=== PATIENT | female | born 1990 ===

== ENCOUNTER 2023-05-04 04:58 | Emergency (ER) | payer OTHER, SELFPAY ==
[2023-05-04 05:05] VITALS: BP 126/83; PULSE 81; RESP 16; TEMP 36.3; O2SAT 100
--- NOTE | 2023-05-04 05:10 | ED.GENADULT ---
HPI - General Adult General Chief complaint: Headache/Migraine Stated complaint: headache above left ear Time Seen by Provider: 05/04/23 05:10 History of Present Illness HPI narrative: pt reports pain, head to left ear. Started Friday morning, off and on since then. Pt has been alternating between Tylenol and Ibuprofen. Last dose at 4am. feels like someone is stabbing in her head. 32-year-old woman presenting to the emergency department with complaint of left ear, head pain. Shane and sharp pain over the last 24 hours beginning when she woke up with a headache. She thought initially maybe was a tooth problem she does not think that is it. Acknowledging her underbite and crooked teeth she says. Definitely hurts to lay more in her left side of her head. Spasms of pain will occur every minute or to. She is in tears telling me about this. Has been no fever. No cough or cold symptoms. She is not congested really. No actual ear pain. Has tried acetaminophen and ibuprofen without relief. No rashes noted. Gestures to area of pain just behind and surrounding her left rastafarian. Related Data Previous Rx's Medication Instructions Recorded carbamazepine 200 mg tablet 200 mg PO BID Trigeminal neuralgia 05/04/23 #60 tabs Allergies Allergy/AdvReac Type Severity Reaction Status Date / Time No Known Drug Allergies Allergy Verified 05/04/23 05:08 Review of Systems Status of ROS: Reports: 6 or more systems reviewed and unremarkable except as noted in History and below [facility] Social History Non-prescribed substance use: denies use Exam Narrative: Exam Narrative: Pleasant. Clearly distressed. Begins to cry as she is talking about this. Pauses and winces in apparent pain. Breathing easily. Heart regular rate and rhythm. No sensory deficits moving all extremities without difficulty she is well-perfused. Neck is supple without lymphadenopathy. TMs are clear. Dentition is in good repair. No oropharyngeal lesions. No swelling over the rastafarian, no pulsatile mass appreciated. She is not sore to occipital percussion. No rashes. Const: Vital Signs, click to edit/add: Vital Signs - 24 hr 05/04/23 05:05 05/04/23 06:36 Temperature 97.3 F L Pulse Rate [Left P ulse Oximeter] 81 78 Respiratory Rate 16 18 Blood Pressure [Ri ght Upper Arm] 126/83 128/64 Pulse Oximetry 100 99 Oxygen Delivery Me thod Room Air Room Air Documenting provider has reviewed patient's vital signs: yes Course Vital Signs Vital signs: Initial Vital Signs Temperature 97.3 F L 05/04/23 05:05 Temperature Source Temporal Artery Scan 05/04/23 05:05 Pulse Rate 81 05/04/23 05:05 Pulse Rhythm Regular 05/04/23 05:05 Respiratory Rate 16 05/04/23 05:05 Blood Pressure 126/83 05/04/23 05:05 Blood Pressure Mean 97 05/04/23 05:05 Blood Pressure Position Sitting 05/04/23 05:05 Pulse Oximetry 100 05/04/23 05:05 Oxygen Delivery Method Room Air 05/04/23 05:05 Vital Signs Temperature 97.3 F L 05/04/23 05:05 Pulse Rate 81 05/04/23 05:05 Respiratory Rate 16 05/04/23 05:05 Blood Pressure 126/83 05/04/23 05:05 Pulse Oximetry 100 05/04/23 05:05 Oxygen Delivery Method Room Air 05/04/23 05:05 Temperature 97.3 F L 05/04/23 05:05 Pulse Rate 78 05/04/23 06:36 Respiratory Rate 18 05/04/23 06:36 Blood Pressure 128/64 05/04/23 06:36 Pulse Oximetry 99 05/04/23 06:36 Oxygen Delivery Method Room Air 05/04/23 06:36 Medical Decision Making MDM Narrative Medical decision making narrative: I would suspect tic douloureux/trigeminal neuralgia. Temporal arteritis possibility as well though recurrent pulse of pain I think are more consistent with the former. Offered a trial of intranasal lidocaine mist. This seemed to pauses possibly a cycle or 2 of the pulsatile pain, but did return. Carbamazepine 200 mg Prior to departure began to have what appeared to be a panic attack. Generally trembly. Reported initially some dizziness and tingling in both hands. Worked together to relax. See patient discharge Discharge Plan Discharge Clinical Impression: Left-sided trigeminal neuralgia Patient Disposition: Home, Self-Care Condition: Stable Additional Instructions: I suspect unfortunately you have trigeminal neuralgia also known as tic douloureux. The Percocet from [facility] might take a little bit of the edge off. The treatment though to start with will be carbamazepine also known as Tegretol. Begin at 200 mg 2 times daily and in 3-4 days can increase to 400 mg 2 times daily if needed. In another 3 or 4 days can increase to 600 mg 2 times daily. A main side effect of Tegretol can be sedation. You may need to be on this medication for many weeks. You do not need to increase the dosing if it seems to be working. Please call on Friday morning to schedule a visit with your primary care provider to arrange next steps in treatment or evaluation. Sometimes injections to block nerves can be helpful. Stay well-hydrated. Do your best to get good sleep. Prescriptions: New carbamazepine 200 mg tablet 200 mg PO BID Qty: 60 0RF Follow Up/Referrals: Marya Scott MD [Primary Care Provider] - Stand Alone Forms: [employer] Info Instructions
[2023-05-04 06:36] VITALS: BP 128/64; PULSE 78; RESP 18; O2SAT 99
== END 2023-05-04 07:19 | disposition home or self-care (01) ==
PROVIDERS: Emergency Provider Family Medicine; PCP Family Medicine
DX: G50.0 Trigeminal neuralgia (principal)
CPT/HCPCS: 99283; 99284

== ENCOUNTER 2024-03-01 18:26 | Emergency (ER) | payer OTHER, SELFPAY ==
[2024-03-01 18:31] VITALS: BP 132/91; PULSE 81; RESP 16; TEMP 37; O2SAT 97; BMI 40.2
[2024-03-01 19:13] LABS: Appearance Urine Cloudy (Clear); Bilirubin Urine Negative (Negative); Blood Urine 3+ (Negative); Color Urine Red (Yellow); Glucose Urine Negative (Negative); Ketones Urine Negative (Negative); Leukocyte Esterase Urine Negative (Negative); Nitrite Urine Negative (Negative); Protein Urine Trace (Negative); Specific Gravity Urine 1.015 (1.000-1.030); Urobilinogen Urine 0.2 (0.2-1.0)
[2024-03-01 19:27] LABS: Bacteria Urine Few; RBC Urine 25-50 (0-2); Squamous Epithelial Cell Urine Few (None-Few)
--- NOTE | 2024-03-01 19:31 | ED_ITS ---
HPI - Female Genitourinary General Time Seen by Provider: 19:31 Date Seen: 03/01/24 Chief complaint: Urogenital Problems, Female Stated complaint: UTI upper back pain Time Seen by Provider: 03/01/24 19:31 Source: patient, RN notes reviewed and old records reviewed Mode of arrival: ambulatory Limitations: no limitations History of Present Illness HPI Narrative: 33-year-old female who comes in with hematuria and bilateral upper back pain. She was diagnosed with urinary tract infection yesterday, started on Keflex. She returns today with continued hematuria although dysuria has improved, also notes left flank pain, body aches, and some nausea. History of kidney stones and says this feels similar. No chest pain, cough, shortness of breath. No fevers at home. Has not taken anything for her symptoms. Related Data Home Medications ?Medication ?Instructions ?Recorded ?Confirmed cephalexin 500 mg capsule 500 mg PO 3XD 03/01/24 03/01/24 Allergies Allergy/AdvReac Type Severity Reaction Status Date / Time No Known Drug Allergies Allergy Verified 01/25/24 12:36 [facility] Social History Do you use any of these nicotine containing products: None How often do you have a drink containing alcohol: never AUDIT-C Alcohol total score: 0 Non-prescribed substance use: denies use Exam Narrative: Exam Narrative: General: Well-developed and well-nourished, no acute distress Head: Atraumatic and normocephalic Eyes: Pupils are equal reactive, extraocular motions intact, conjunctiva clear ENT: External nose and ears are normal, posterior pharynx without erythema or exudate Neck: No midline cervical tenderness, full spontaneous range of motion the neck, trachea midline, no adenopathy Heart: Regular rate and rhythm no murmurs or thrills Lungs: Clear to auscultation bilaterally without wheezes or crackles Abdomen: Soft, mild left upper quadrant tenderness, nondistended with active bowel sounds. Left CVA tenderness Musculoskeletal: No tenderness, deformity, or edema Neurologic: Awake, alert, and oriented x3, no gross focal neurologic deficits, cranial nerves intact as tested Psych: Mood and affect are appropriate Skin: No rashes Const: Vital Signs, click to edit/add: Vital Signs - 24 hr 03/01/24 18:31 Temperature 98.6 F Pulse Rate [Pulse Oximeter] 81 Respiratory Rate 16 Blood Pressure [[facility] Upper Arm] 132/91 H Pulse Oximetry 97 Oxygen Delivery Me thod Room Air Course Course ED Course: Reviewed most recent office visit from February 27 when patient was seen for dysuria in hematuria as well as back pain and abdominal pain, urinalysis at that visit demonstrated 6-10 red cells, 6-10 white cells, moderate blood and small leukocyte esterase with negative nitrates. test was negative. Patient returns today with continued symptoms of hematuria, flank pain particularly on the left, nausea, and body aches. Labs ordered and independently interpreted by me with 3+ blood and 25-50 red cells, negative leukocyte esterase. Patient may have a UTI although symptoms seem more consistent with a kidney stone. Labs are ordered along with fluids, Toradol, Zofran, and CT scan. Negative test on February 27 Reevaluation(s) Time of Reevaluation #1: 20:57 Reevaluation #1: Labs independently interpreted by me as normal white blood cell count, hemoglobin 11.4, normal basic panel with normal creatinine and. CT scan of the abdomen pelvis independently interpreted by me shows circumferential wall thickening of the bladder consistent with possible cystitis. Patient is already on antibiotics for this. Continue antibiotics, lots of fluids, Tylenol ibuprofen for pain. Stable for discharge. Vital Signs Vital signs: Initial Vital Signs Temperature 98.6 F 03/01/24 18:31 Temperature Source Temporal Artery Scan 03/01/24 18:31 Pulse Rate 81 03/01/24 18:31 Respiratory Rate 16 03/01/24 18:31 Blood Pressure 132/91 H 03/01/24 18:31 Blood Pressure Mean 104 03/01/24 18:31 Blood Pressure Position Standing 03/01/24 18:31 Pulse Oximetry 97 03/01/24 18:31 Oxygen Delivery Method Room Air 03/01/24 18:31 Vital Signs Temperature 98.6 F 03/01/24 18:31 Pulse Rate 81 03/01/24 18:31 Respiratory Rate 16 03/01/24 18:31 Blood Pressure 132/91 H 03/01/24 18:31 Pulse Oximetry 97 03/01/24 18:31 Oxygen Delivery Method Room Air 03/01/24 18:31 Temperature 98.6 F 03/01/24 18:31 Pulse Rate 81 03/01/24 18:31 Respiratory Rate 16 03/01/24 18:31 Blood Pressure 132/91 H 03/01/24 18:31 Pulse Oximetry 97 03/01/24 18:31 Oxygen Delivery Method Room Air 03/01/24 18:31 Medications Administered Medications: Discontinued Medications Generic Name Dose Route Start Last Admin Trade Name Freq PRN Reason Stop Dose Admin Sodium Chloride 1,000 mls @ 1,000 mls/hr 03/01/24 20:00 03/01/24 20:10 0.9 % Sodium Chloride 1000 Ml IV 03/01/24 20:59 1,000 mls/hr .Q1H PHILLY Administration Ketorolac Tromethamine 15 mg 03/01/24 19:50 03/01/24 20:10 Ketorolac 15 Mg/Ml Inj IVP 03/01/24 19:51 15 mg ONCE ONE Administration Ondansetron HCl 4 mg 03/01/24 19:50 03/01/24 20:10 Ondansetron 2 Mg/Ml Inj IVP 03/01/24 19:51 4 mg ONCE ONE Administration MDM - Female Genitourinary Lab Data Labs: Lab Results 03/01/24 03/01/24 Range/Units 19:08 20:09 WBC 6.27 (4.50-11.00) K/uL RBC 4.55 (4.00-5.20) m/uL Hgb 11.4 L (12.0-16.0) gm/dL Hct 36.2 (33.0-51.0) % MCV 80 (80-100) fL MCH 25 L (26-34) pg MCHC 32 (32-36) gm/dL RDW Coeff of Wen 15.6 H (11.5-15.5) % Plt Count 314 (140-440) K/uL Neut % (Auto) 64.4 (42.0-72.0) % Lymph % (Auto) 27.0 (20-44) % Dickson % (Auto) 5.4 (0.0-11.0) % Eos % (Auto) 2.1 (0.0-7.0) % Baso % (Auto) 0.8 (0.0-3.0) % Neut # (Auto) 4.04 (1.7-7.0) K/uL Lymph # (Auto) 1.69 (0.90-2.90) K/uL Dickson # (Auto) 0.30 (0.00-0.90) K/UL Eos # (Auto) 0.13 (0.00-0.50) K/uL Baso # (Auto) 0.05 (0.00-0.30) K/uL Abs Immat Gran (auto) 0.02 (0.00-0.30) K/uL Imm/Tot Granulo (auto) 0.3 % Sodium 137 (135-149) mmol/L Potassium 3.6 (3.6-5.1) mmol/L Chloride 103 (96-114) mmol/L Carbon Dioxide 25 (20-32) mmol/L Anion Gap 9 (7-15) mEq/L BUN 11 (5-24) mg/dL Creatinine 0.6 (0.5-1.5) mg/dL Estimated Creat Clear 166.75 Estimated GFR 122 ml/min Glucose 94 (60-115) mg/dL Calcium 9.0 (8.4-10.6) mg/dL Urine Color Red A (Yellow) Urine Appearance Cloudy A (Clear) Urine pH 6.0 (5.0-8.5) Ur Specific [place] 1.015 (1.000-1.030) Urine Protein Trace A (Negative) Urine Glucose (UA) Negative (Negative) Urine Ketones Negative (Negative) Urine Blood 3+ A (Negative) Urine Nitrite Negative (Negative) Urine Bilirubin Negative (Negative) Urine Urobilinogen 0.2 (0.2-1.0) Ur Leukocyte Esterase Negative (Negative) Urine RBC 25-50 A (0-2) Urine WBC 2-5 (0-5) Ur Squamous Epith Cells Few (None-Few) Urine Bacteria Few A (None) Discharge Plan Discharge Clinical Impression: Acute cystitis with hematuria Patient Disposition: Home, Self-Care Condition: Stable Instructions: Urinary Tract Infection in Women (DC) Additional Instructions: Continue antibiotics as previously prescribed Tylenol and ibuprofen as needed Bleeding and discomfort should improve as your infection is treated. Activity Level: No Restrictions Prescriptions: No Action cephalexin 500 mg capsule 500 mg PO 3XD Follow Up/Referrals: Marya Scott MD [Primary Care Provider] - Stand Alone Forms: [employer] Info Instructions
--- NOTE | 2024-03-01 19:50 | CRLHL7_ITS ---
For Patients: As a result of the Century Cures Act, medical imaging exams and procedure reports are released immediately into your electronic medical record. You may view this report before your referring provider. If you have questions, please contact your health care provider. INDICATION: Mid back pain, groin pain, bleeding from urethra. TECHNIQUE: CT abdomen and pelvis without contrast. COMPARISON: None. FINDINGS: Lower chest: Unremarkable. Liver: Normal in size and attenuation. No suspicious masses. Gallbladder and bile ducts: Cholecystectomy. Pancreas: Unremarkable. No mass or inflammation. Spleen: Normal in size. No masses. Adrenal glands: Normal in size. No nodules. Kidneys: Tiny nonobstructing left renal stone. Normal in size. No suspicious masses, or hydronephrosis. GI tract: Mild colonic stool burden. Normal in caliber. No sign of mass or inflammation. Normal appendix. Vasculature: Abdominal aorta is normal in caliber. Lymph nodes: No lymphadenopathy. Peritoneum/Abdominal Wall: Fciod-[id number] fat containing umbilical hernia. No sign of mass or infiltration. No free air or significant free fluid. Pelvis: Mildly distended bladder with circumferential wall thickening. Recommend correlation with urinalysis if UTI suspected. Cystic appearance about the cervix, possibly nabothian cysts.. No pelvic masses. Bones: Unremarkable for age. IMPRESSION: No acute intra-abdominal/pelvic abnormality including obstructive uropathy as questioned. Tiny nonobstructing left renal stone. Mild colonic stool burden. Please note that all CT scans at this facility use dose modulation, iterative reconstruction, and/or weight-based dosing when appropriate to reduce radiation dose to as low as reasonably achievable. Dictated by Mikal Saxena MD @ 03/01/2024 8:53:25 PM (Electronically Signed)
[2024-03-01] MEDS: KETOROLAC 15 MG/ML inj IVP (20:10)
[2024-03-01] MEDS: 0.9 % SODIUM CHLORIDE 1000 ml 1,000 ML IV (20:10)
[2024-03-01] MEDS: ONDANSETRON 2 MG/ML inj 4 MG IVP (20:10)
[2024-03-01 20:21] LABS: Basophils Absolute Auto 0.05 K/uL (0.00-0.30); Basophils Percent Auto 0.8 % (0.0-3.0); Eosinophils Absolute Auto 0.13 K/uL (0.00-0.50); Eosinophils Percent Auto 2.1 % (0.0-7.0); Hematocrit 36.2 % (33.0-51.0); Hemoglobin* 11.4 gm/dL (12.0-16.0); Immature Granulocytes Abs Auto 0.02 K/uL (0.00-0.30); Immature Granulocytes Pct Auto 0.3 %; Lymphocytes Absolute Auto 1.69 K/uL (0.90-2.90); Mean Corpuscular HGB Conc 32 gm/dL (32-36); Mean Corpuscular Hemoglobin 25 pg (26-34); Mean Corpuscular Volume 80 fL (80-100); Monocytes Percent Auto 5.4 % (0.0-11.0); Neutrophils Absolute Auto 4.04 K/uL (1.7-7.0); Neutrophils Percent Auto 64.4 % (42.0-72.0); Platelet Count* 314 K/uL (140-440); RDW Coefficient of Variation % 15.6 % (11.5-15.5); Red Blood Count 4.55 m/uL (4.00-5.20); White Blood Count* 6.27 K/uL (4.50-11.00)
[2024-03-01 20:25] LABS: Slide Review Reflex No
[2024-03-01 20:36] LABS: Chloride* 103 mmol/L (96-114); Potassium* 3.6 mmol/L (3.6-5.1); Sodium* 137 mmol/L (135-149)
[2024-03-01 20:39] LABS: Anion Gap 9 mEq/L (7-15); Blood Urea Nitrogen* 11 mg/dL (5-24); Carbon Dioxide* 25 mmol/L (20-32); Creatinine* 0.6 mg/dL (0.5-1.5); Est. Creatinine Clearance* 166.75; Estimated Glomerular Filt Rate 122 ml/min; Glucose* 94 mg/dL (60-115)
== END 2024-03-01 21:11 | disposition home or self-care (01) ==
PROVIDERS: Emergency Provider Family Medicine; PCP Family Medicine
DX: N30.01 Acute cystitis with hematuria (principal)
CPT/HCPCS: 36415; 74176; 80048; 81001; 85025; 87086; 96374; 96375; 99284; J1885; J2405; J7030

== ENCOUNTER 2024-08-04 18:05 | Emergency (ER) | payer OTHER, SELFPAY ==
[2024-08-04 18:16] VITALS: BP 148/87; PULSE 110; RESP 16; TEMP 36.7; O2SAT 99; BMI 35.5
[2024-08-04] MEDS: ONDANSETRON ODT 4 MG TAB PO (19:34)
--- NOTE | 2024-08-04 19:38 | ED_ITS ---
HPI - General Adult General Chief complaint: Nausea/Vomiting Stated complaint: took two edibles, anxious Time Seen by Provider: 08/04/24 19:33 History of Present Illness HPI narrative: Pt took gummies for the first time, took 2 at once and has nausea, dizziness and anxiety. Pt very ashamed and states she wouldn't have come but her tongue felt thick. Breathing is fine, O2 sats 99% on RA, tongue is not swollen, assured pt with gummie education. 33-year-old woman presenting to the emergency department with concern of episode of heart pounding fast, dizzy or lightheaded and then finally her tongue feeling thick. Worried she was having a potential urgent reaction or bad reaction of some sort following ingestion of 2 THC gummies, presented to the emergency department for evaluation. This is the 1st time she had taken something like this. Admittedly was very anxious. By the time I am seeing her she has been reassured and admittedly feeling better and feeling rather silly about this whole experience. Does however wish to have further evaluation. Still with bailey e nausea. Related Data Home Medications ?Medication ?Instructions ?Recorded ?Confirmed cephalexin 500 mg capsule 500 mg PO 3XD 03/01/24 03/01/24 Allergies Allergy/AdvReac Type Severity Reaction Status Date / Time No Known Drug Allergies Allergy Verified 08/04/24 19:55 Review of Systems Status of ROS: Reports: 6 or more systems reviewed and unremarkable except as noted in History and below [facility] Social History Do you use any of these nicotine containing products: None How often do you have a drink containing alcohol: never AUDIT-C Alcohol total score: 0 Non-prescribed substance use: denies use Exam Narrative: Exam Narrative: Very pleasant. Speaking clearly, fluidly. Breathing easily. Cranial nerves 2- 12 intact. Pupils equal at about 4 mm. Moving all extremities without difficulty. Heart is in elevated rate but regular rhythm. Oropharynx is unremarkable. Const: Vital Signs, click to edit/add: Vital Signs - 24 hr 08/04/24 18:16 Temperature 98.1 F Pulse Rate [Right Pulse Oximeter] 110 H Respiratory Rate 16 Blood Pressure [Ri ght Upper Arm] 148/87 H Pulse Oximetry 99 Oxygen Delivery Me thod Room Air Documenting provider has reviewed patient's vital signs: yes Course Vital Signs Vital signs: Initial Vital Signs Temperature 98.1 F 08/04/24 18:16 Temperature Source Temporal Artery Scan 08/04/24 18:16 Pulse Rate 110 H 08/04/24 18:16 Pulse Rhythm Regular 08/04/24 18:16 Pulse Strength 3+ Normal 08/04/24 18:16 Respiratory Rate 16 08/04/24 18:16 Blood Pressure 148/87 H 08/04/24 18:16 Blood Pressure Mean 107 H 08/04/24 18:16 Blood Pressure Position Sitting 08/04/24 18:16 Pulse Oximetry 99 08/04/24 18:16 Oxygen Delivery Method Room Air 08/04/24 18:16 Vital Signs Temperature 98.1 F 08/04/24 18:16 Pulse Rate 110 H 08/04/24 18:16 Respiratory Rate 16 08/04/24 18:16 Blood Pressure 148/87 H 08/04/24 18:16 Pulse Oximetry 99 08/04/24 18:16 Oxygen Delivery Method Room Air 08/04/24 18:16 Temperature 98.1 F 08/04/24 18:16 Pulse Rate 72 08/04/24 20:04 Respiratory Rate 18 08/04/24 20:04 Blood Pressure 117/78 08/04/24 20:04 Pulse Oximetry 99 08/04/24 18:16 Oxygen Delivery Method Room Air 08/04/24 18:16 Medications Administered Medications: Discontinued Medications Generic Name Dose Route Start Last Admin Trade Name Freq PRN Reason Stop Dose Admin Ondansetron HCl 4 mg 08/04/24 18:28 08/04/24 19:34 Ondansetron Odt 4 Mg Tab PO 08/04/24 18:29 4 mg ONCE ONE Administration Medical Decision Making MDM Narrative Medical decision making narrative: I do not see any evidence of an allergic reaction at this point. This really does appear to be either a mild relative overdose or reaction with anxiety to unfamiliar ingestion. Appears to have been a reliable product although I suppose content could vary. Given 1 tablet of Zofran here in the emergency department. She does not feel she will need more. Overall she seems well. I do not think requires further investigation. See patient discharge plan for further discussion You seem well otherwise. I suppose just need to be more aware of what you are taking and take it easy. Medical Records Medical records reviewed: Yes I reviewed the patient's medical records Discharge Plan Discharge Clinical Impression: Drug ingestion, Anxiety Patient Disposition: Home w/ Parent or Adult Condition: Improved Additional Instructions: You seem well otherwise. I suppose just need to be more aware of what you are taking and take it easy. Prescriptions: No Action cephalexin 500 mg capsule 500 mg PO 3XD Follow Up/Referrals: Marya Scott MD [Primary Care Provider] - Stand Alone Forms: [employer] Info Instructions
[2024-08-04 20:04] VITALS: BP 117/78; PULSE 72; RESP 18
== END 2024-08-04 20:10 | disposition home or self-care (01) ==
LOC: ED 19:59
PROVIDERS: Emergency Provider Family Medicine; PCP Family Medicine
DX: F12.980 Cannabis use, unspecified with anxiety disorder (principal)
CPT/HCPCS: 99283; 99284; A9270

== ENCOUNTER 2024-09-24 19:43 | Emergency (ER) | payer OTHER, SELFPAY ==
--- OUTSIDE RECORDS SUMMARY | 2024-09-24 19:45 | XMS_ITS | Clinical Summary ---
Author Organization [facility] Address [address] [place] [address] Care Team Providers Care Screw Driver Operator Name Role Phone Niki Larkin M.D. Primary Care Provider [phone]- [phone] Source Comments Patient records contain information from all sites at [facility]. For routine questions regarding patient records, call [phone] during business hours, M-F 8:00 AM - 5:00 PM Central Time. Record requests for emergency care only can be directed to [phone] at any time.[facility] Allergies No known active allergies Medications acetaminophen (TYLENOL) 325 mg tablet Take 500 mg by mouth every 6 (six) hours. 08/01/20 20 Active Bacillus coagulans 800 million cell tablet Take 1 capsule by mouth daily. 11/13/19 23 Active UNABLE TO FIND Take 1 each by mouth daily. Med Name: Magnesium supplement 350 mg Active B complex-vitami ns (BALANCE B-50) tablet Take 1 tablet by mouth daily. Active cholecalcifero l (VITAMIN D3) 125 mcg (5,000 Unit) capsule Take 125 mcg by mouth daily. Active oxyCODONE-acet aminophen (PERCOCET) 5-325 mg per tablet Take 1.5 tablets by mouth daily. 05/04/20 23 025 Discontinued UNABLE TO FIND Take 1 each by mouth daily. Med Name: Digest Gold Enzyme 025 Discontinued( erapy completed) aspirin [address] tablet Take 81 mg by mouth daily. 025 Discontinued( erapy completed) carBAMazepine (TEGretol) 200 mg tabletIndicati ons:Trigeminal Neuralgia Take 2 tablets (400 mg total) by mouth 2 (two) times a day. 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 Encounters Date Type Department Care Team Description 09/20/2024 Results Follow-Up Department of Family Medicine, [facility], in [address] [phone] Elen Larios APRN, C.N.P. Basic Metabolic Panel, HIV-1/-2 Ag and Ab Screen, Plasma, HCV Ab Scrn w/Reflex to HCV PCR, Serum 09/16/2024 2:31 PM IRONMOLDER - 09/16/2024 11:59 PM IRONMOLDER Hospital Encounter Department of Laboratory Medicine in [address] [phone] Elen Larios APRN, C.N.P. Screening Test Laboratory Discharge Disposition: Home or Self Care 09/16/2024 2:31 PM IRONMOLDER - 09/16/2024 11:59 PM IRONMOLDER Hospital Encounter Department of Laboratory Medicine in [address] [phone] Elen Larios APRN, C.N.P. Screening Test Laboratory; Human Immunodeficiency Virus Screening Discharge Disposition: Home or Self Care 09/16/2024 1:30 PM IRONMOLDER Comprehensive Visit Department of Family Medicine, [facility], in [address] [phone] Elen Larios APRN, C.N.P. Human Immunodeficiency Virus Screening; Screening Test Laboratory Discharge Disposition: Home or Self Care from Last 3 Months Immunizations Immunization Administration Dates Next Due 9vHPV 09/16/2024,08/27/2016 Influenza, Seasonal, Injectable 06/03/2013,08/04,06/28/2010 Tdap 05/04/2018,12/28/2012 Tuberculin Skin Test, Unspecified 12/12/2016 influenza vaccine quad (FLUZONE/FLUARIX) (6 months and older)(PF) 06/20/2020,07/05/2017,11/02/2015,2013 Family History Medical History Relation Name Comments Alcohol abuse Father Bao Ojeda Diabetes Father Bao Ojeda Kidney disease Father Bao Ojeda Obesity Father Bao Ojeda Coronary artery disease Mother Elva Bennett M om had a heart attack at 43 years old. Hyperlipidemia Mother Elva Bennett Hypertension Mother Elva Bennett Osteoporosis Mother Elva Bennett Rheum arthritis Mother Elva Bennett Sleep apnea Mother Elva Bennett Ovarian cancer Mother's Sister 1 Tanishagloria Bennett Matern al Aunt got diagnosed with ovarian cancer at age 35 Other cancer Mother's Sister 2 Tanisha Bennett Uterine Cancer Ovarian cancer Mother's Sister 2 Tanishagloria Mayos Matern al Aunt got diagnosed with ovarian cancer at age 35 Diabetes Paternal Grandfather Joao Ojeda Liver disease Paternal Grandfather Joao Ojeda Obesity Paternal Grandfather Joao Ojeda Arthritis Paternal Grandmother Madelyn Ojeda Diabetes Paternal Grandmother Madelyn Ojeda Liver disease Paternal Grandmother Madelyn Ojeda Obesity Paternal Grandmother Madelyn Ojeda Relation Name Status Comments Father Bao Ojeda Alive Mother Elva Bennett Alive Mother's Sister 1 Tanisha Bennett Alive Mother's Sister 2 Tanisha Ramos Alive Paternal Grandfather Joao Ojeda Alive Paternal Grandmother Madelyn Ojeda Alive Social History Tobacco Use Types Packs/Day Years Used Date Smoking Tobacco: Never Smokeless Tobacco: Never Comments:Never been a smoker . Alcohol Use Standard Drinks/Week Comments Never 0 (1 standard drink = 0.6 oz pur e alcohol) [facility] Utilities Answer Date Recorded In the past 12 months has e electric, gas, oil, or water company threatened to shut off services in your home? No 09/16/2024 Overall Financial Resource Strain (CARDIA) Answe r Date Recorded How hard is it for you to pa y for the very basics like food, housing, medical care, and heating? Not hard at all 05/13/2023 PHQ-2 Answer Date Recorded PHQ-2 Score 0 09/16/2024 Exercise Vital Sign Answer Date Recorde d On average, how many days pe r week do you engage in moderate to strenuous exercise (like a brisk walk)? 0 days 09/16/2024 On average, how many minutes do you engage in exercise at this level? 0 min 09/16/2024 Hunger Vital Sign Answer Date Recorded Within the past 12 months, y ou worried that your food would run out before you got the money to buy more. Never true 09/16/19 Within the past 12 months, t he food you bought just didn't last and you didn't have money to get more. Never true 09/16/2024 PRAPARE - Transportation Answer Date Re corded In the past 12 months, has l ack of transportation kept you from medical appointments or from getting medications? No 08/20 In the past 12 months, has l ack of transportation kept you from meetings, work, or from getting things needed for daily living? No 09/16/2024 Nutrition Answer Date Recorded On average, how many serving s of fruits and vegetables do you eat per day (serving size is equal to 1 cup or approximately the size of a tennis ball)? 3-5 09/16/2024 Dental Answer Date Recorded Dental: Regular Dentist No 09/16/19 Employment Answer Date Recorded Employment status Employed and actively working without restrictions 09/16/2024 Housing Stability Answer Date Recorded What is your living situation today? I have a [facility] place to live 09/16/2024 Comments No Sex and Gender Information Value Date Recorded Sex Assigned at Female 05/13/2023 8:15 AM CDT Legal Sex Female 10:45 AM CDT Gender Identity Female 05/13/2023 8:15 AM CDT Sexual Orientation Straight 05/13/2023 8: 15 AM CDT Last Filed Vital Signs Vital Sign Reading Time Taken Comments Blood Pressure 111/78 09/16/2024 1:24 PM IRONMOLDER Pulse 69 09/16/2024 1:24 PM IRONMOLDER Temperature 36.9 C (98.4 F) 09/16/2024 1:24 PM IRONMOLDER Respiratory Rate - - Oxygen Saturation - - Inhaled Oxygen Concentration - - Weight 81.6 kg (179 lb 14.3 oz) 09/16/2024 1:24 PM IRONMOLDER Height 151.6 cm (4' 11.69) 09/16/2024 1:24 PM C Body Mass Index 35.51 09/16/2024 1:24 PM IRONMOLDER Plan of Treatment Health Maintenance Due Date Last Done Comments Cervical/Vaginal Cancer Screening 1991 Hepatitis B Vaccines (1 of 3 - 19+ 3-dose series) 11/26/2010 COVID-19 Vaccine (3 - 2023- season) 2024 10/09/2021, 09/17/2021 Influenza Vaccine (#1) 2024 , 07/05/2017, 11/02/2015, Additional history exists HPV Vaccines (3 - 3-dose series) 12/09/2024 09/16/2024, 08/27/2016 DTaP,Tdap,and Td Vaccines (3 - Td or Tdap) 05/04/2028 05/04/2018, 12/28/2012 Depression Screening (Annual PHQ-2) Completed 09/16/2024, 09/16/2024 HIV Screening Completed 09/16/2024 Hepatitis C Screening Completed 09/16/2024 IPV Vaccines Aged Out No longer eligi ble based on patient's age to complete this topic Pneumococcal vaccine (0-49 years) Aged Out No longer eligible based on patient's age to complete this topic Procedures Procedure Name Priority Date/Time Associated Diagnosis Comments URINALYSIS WITH MICROSCOPIC IF INDICATED, U Routine 09/16/2024 2:46 PM IRONMOLDER Screening Test Laboratory BASIC METABOLIC PANEL, S/P Routine 09/16/2024 2:38 PM IRONMOLDER Screening Test Laboratory HCV AB SCRN W/REFLEX TO HCV PCR, S Routine 09/16/2024 2:38 PM IRONMOLDER Screening Test Laboratory HIV-1/-2 AG AND AB SCREEN, PLASMA Routine 09/16/2024 2:38 PM IRONMOLDER Human Immunodeficiency Virus Screening from Last 3 Months Results * Urinalysis with Microscopic if Indicated: Urine, Midstream (09/16/2024 2:46 PM IRONMOLDER) Source Urine, Urine, Midstream 09/16/2024 2:46 PM IRONMOLDER CNFL Clarity Clear Clear 09/16/2024 2:49 PM IRONMOLDER CNFL Color Yellow 09/16/2024 2:49 PM IRONMOLDER CNFL Comment: ----REFERENCE VALUE---- Colorless Yellow Debora Blood Negative Negative 09/16/2024 2:49 PM IRONMOLDER CNFL Nitrite Negative Negative 09/16/2024 2:49 PM IRONMOLDER CNFL Leukocyte Esterase Negative Negative 09/16/2024 2:49 PM IRONMOLDER CNFL Protein Negative mg/dL 09/16/2024 2:49 PM IRONMOLDER CNFL Comment: ----REFERENCE VALUE---- Negative Trace Glucose Negative Negative mg/dL 09/16/2024 2:49 PM IRONMOLDER CNFL Ketones, QI(U) Negative Negative mg/dL 09/16/2024 2:49 PM IRONMOLDER CNFL Bilirubin Negative Negative 09/16/2024 2:49 PM IRONMOLDER CNFL pH 7.0 5.0 - 8.0 09/16/2024 2:49 PM IRONMOLDER CNFL Specific [place] 1.020 1.001 - 1.035 09/16/2024 2:49 PM IRONMOLDER CNFL Urobilinogen 0.2 0.2 - 1.0 mg/dL 09/16/2024 2:49 PM IRONMOLDER CNFL Urine (Urine, Midstream) 09/16/2024 2:46 PM IRONMOLDER 09/16/2024 2:46 PM IRONMOLDER Elen Larios APRN, C.N.P. LAB URINE ORDERABLES Final Result [facility] [address] [place] [id number], [facility] CNFL [facility] in [address] [address] * HIV-1/-2 Ag and Ab Screen, Plasma (09/16/2024 2:38 PM IRONMOLDER) Pathologist [facility] HIV Ag/Ab Screen, P Negative Negative 09/17/2024 9:43 AM IRONMOLDER ECLR Comment: Negative result does not rule out HIV infection. If exposure to HIV infection occurred <14 days ago, contact the laboratory to request addition of HIV-1/HIV-2 RNA detection, Plasma (HIP12). HIV-1 p24 Ag Screen, P Negative Negative 09/17/2024 9:43 AM IRONMOLDER ECLR Comment: Negative result does not rule out HIV infection. If exposure to HIV infection occurred <14 days ago, contact the laboratory to request addition of HIV-1/HIV-2 RNA detection, Plasma (HIP12). HIV-1 Ab Screen, P Negative Negative 09/17/2024 9:43 AM IRONMOLDER ECLR Comment: Negative result does not rule out HIV infection. If exposure to HIV infection occurred <14 days ago, contact the laboratory to request addition of HIV-1/HIV-2 RNA detection, Plasma (HIP12). HIV-2 Ab Screen, P Negative Negative 09/17/2024 9:43 AM IRONMOLDER ECLR Comment: Negative result does not rule out HIV infection. If exposure to HIV infection occurred <14 days ago, contact the laboratory to request addition of HIV-1/HIV-2 RNA detection, Plasma (HIP12). Blood (Blood, Venous) 09/16/2024 2:38 PM IRONMOLDER 09/16/2024 8:33 PM IRONMOLDER lEen Larios APRN C.N.P. LAB MICROBIOLOGY - BL OOD ORDERABLES Final Result [facility] [address] [place] [id number], [facility] ECLR [facility] in [address] [address] * HCV Ab Scrn w/Reflex to HCV PCR, Serum (09/16/2024 2:38 PM IRONMOLDER) HCV Ab Screen, S Negative Negative 09/16/2024 9:23 PM IRONMOLDER ECLR Blood (Blood, Venous) 09/16/2024 2:38 PM IRONMOLDER 09/16/2024 8:33 PM IRONMOLDER Narrative [facility] - 09/16/2024 9:23 PM IRONMOLDER Specimen Information: Specimen ID: [id number] Specimen Type: Blood Specimen Collection Start Date: 09/16/2024 2:38 PM Specimen Received Date: 09/16/2024 8:33 PM Specimen ID: [id number] Specimen Type: Blood Specimen Collection Start Date: 09/16/2024 2:38 PM Specimen Received Date: 09/16/2024 8:33 PM Jairo Sarmiento APRNNSom LAB MICROBIOLOGY - BL OOD ORDERABLES Final Result [facility] [address] [place] [address], [facility] ECLR [facility] [address] * Basic Metabolic Panel (09/16/2024 2:38 PM IRONMOLDER) Potassium, P 4.2 3.6 - 5.2 mmol/L 09/16/2024 2:58 PM IRONMOLDER CNFL Sodium, P 139 135 - 145 mmol/L 09/16/2024 2:58 PM IRONMOLDER CNFL Chloride, P 103 98 - 107 mmol/L 09/16/2024 2:58 PM IRONMOLDER CNFL Bicarbonate, P 24 22 - 29 mmol/L 09/16/2024 2:58 PM IRONMOLDER CNFL Anion Gap, P 12 7 - 15 09/16/2024 2:58 PM IRONMOLDER CNFL BUN (Blood Urea Nitrogen), P 12 6 - 21 mg/dL 09/16/2024 2:58 PM IRONMOLDER CNFL Creatinine 0.61 0.59 - 1.04 mg/dL 09/16/2024 2:58 PM IRONMOLDER CNFL Estimated GFR (eGFR) >90 >=60 mL/min/BSA 09/16/2024 2:58 PM IRONMOLDER CNFL Comment: Estimated GFR calculated using the 2020 CKD_EPI creatinine equation. Calcium, Total, P 8.8 8.6 - 10.0 mg/dL 09/16/2024 2:58 PM IRONMOLDER CNFL Glucose, P 101 70 - 140 mg/dL 09/16/2024 2:58 PM IRONMOLDER CNFL Blood (Blood, Venous) 09/16/2024 2:38 PM IRONMOLDER 09/16/2024 2:40 PM IRONMOLDER Elen Larios APRN C.N.P. LAB BLOOD ADD-ON Ashanti l Result [facility] [id number] [address], [facility] CNFL [facility] in [place] [id number] [place] [id number] from Last 3 Months Insurance [facility] Care Teams Screw Driver Operator Relationship Specialty Start Date End Date Niki Larkin M.D. [id number] [phone] PCP - General Family Medicine 09/08/24
--- OUTSIDE RECORDS SUMMARY | 2024-09-24 19:45 | XMS_ITS | Encounter Summary ---
Author Organization [facility] Address [address] [place] [address] Care Team Providers Care Tax Economist Name Role Phone Niki Larkin M.D. Primary Care Provider +1- [phone] Encounter Details Date Type Department Care Team (Late st Contact Info) Description 09/20/2024 Results Follow-Up Department of Family Medicine, [facility], in [address] [phone] Elen Larios, SPANISH LECTURER, C.N.P. [address] [place] [phone] Basic Metabolic Panel, HIV-1/-2 Ag and Ab Screen, Plasma, HCV Ab Scrn w/Reflex to HCV PCR, Serum Social History Tobacco Use Types Packs/Day Years Used Date Smoking Tobacco: Never Smokeless Tobacco: Never Comments:Never been a smoker . Alcohol Use Standard Drinks/Week Comments Never 0 (1 standard drink = 0.6 oz pur e alcohol) [facility] Utilities Answer Date Recorded In the past 12 months has [employer] electric, gas, oil, or water company threatened [...] your living situation today? I have a [facility] place to live 09/16/2024 Comments No Sex and Gender Information Value Date Recorded Sex Assigned at Female 05/13/2023 8:15 AM CDT Legal Sex Female 10:45 AM CDT Gender Identity Female 05/13/2023 8:15 AM CDT Sexual Orientation Straight 05/13/2023 8: 15 AM CDT documented as of this encounter Plan of Treatment Not on file documented as of this encounter Visit Diagnoses Not on filedocumented in this encounter Care Teams Tax Economist Relationship Specialty Start Date End Date Niki Larkin M.D. NPLevi: [phone] [id number] [phone] PCP - General Family Medicine 09/08/24 documented as of this encounter
--- OUTSIDE RECORDS SUMMARY | 2024-09-24 19:45 | XMS_ITS | Clinical Summary ---
Author Organization [employer] [facility] [employer] Address [place], [place] [address] Care Team Providers Care Public Speaking Professor Name Role Phone Marya Scott MD Primary Care Prov ider Allergies No known active allergies Medications acetaminophen (TYLENOL) 325 mg tablet Take 2 tablets by mouth every 6 hours. Max acetaminophen dose: 4000mg in 24 hrs. 0 08/01/20 20 Active ibuprofen (ADVIL; MOTRIN) 600 mg tabletIndications: Left lower quadrant abdominal pain Take 1 Tablet (600 mg) by mouth every 6 hours if needed for Pain. Maximum of 3200 mg in 24 hours. 30 Tablet 05/13/20 21 Active medication order composer Iron Bisglycinate 25 mg 0 10/26/19 22 Active Bacillus coagulans (Digestive Advantage Probio-Pre) 800 million cell tab Take by mouth. [employer] Formulated Probiotics 80 Billion CFU 0 11/13/19 23 Active sucralfate (CARAFATE) 1 gram tabletIndications: Upper abdominal pain,Gastritis, presence of bleeding unspecified, unspecified chronicity, unspecified gastritis type Take 1 Tablet (1 g) by mouth four times daily before meals and at bedtime. 30 Tablet 12/26/19 23 Active ondansetron (ZOFRAN ODT) 4 mg disintegrating tabletIndications: Nausea Place 1 Tablet (4 mg) on the tongue every 8 hours if needed for Nausea/Vomiting. 30 Tablet 12/26/19 23 Active esomeprazole (NEXIUM) 40 mg capsuleIndications :Chronic GERD Take 1 Capsule (40 mg) by mouth once daily before a meal. 30 Capsule 3 01/01/20 23 Active cholecalciferol (VITAMIN D3) 5,000 unit capsule Take 125 mcg by mouth. Active Active Problems Problem Noted Date Diagnosed Date Rectus diastasis 09/10/2018 Encounter for supervision of other normal , first trimester 12/18/2017 Overview (07/07/2018): Estimated Date of Delivery: 08/02/18 Patient's last menstrual period was 10/24/2017. Last Tdap- 05/04/2018 Last Flu vaccine- declined No Known Allergies Obstetric History T1 L2 SAB0 TAB0 Ectopic0 Multiple0 Live Births1 # Outcome Date GA Lbr Andrew/2nd Weight Sex Delivery Anes PTL Lv 3 Current 2 01/31/13 38w0d M Vag N Name: Cale Stallings Term 11/10/10 37w0d F Vag EPIDURAL DOMINICK Name: Tanisha Create lab flowsheet for OB labs- Component Latest Ref Rng & Units 12/18/2017 12/18/2017 12/18/2017 12:52 PM 12:52 PM 12:52 PM HEMOGLOBIN 12.0 - 16.0 g/dL 12.1 MCV 80 - 100 fL 87 ANTIBODY SCREEN Negative Negative SPECIMEN EXPIRATION DATE/TIME 12/21/17 23:59 RUBELLA IGG ANTIBODY Positive 20.50 HIV-1/HIV-2 ANTIBODY Non-Reactive Non-Reactive ABORH O Rh Positive HBSAG Nonreactive Nonreactive TREPONEMA PALLIDUM Negative Negative HEMOGLOBIN A1C SCREENING <6.4 % 4.9 Component Latest Ref Rng & Units 05/04/2018 GLUCOSE,GESTATIONAL 65 - 139 mg/dL 93 Component Latest Ref Rng & Units 06/29/2018 Culture No Group B Streptococcus isolated. Past Medical History: Diagnosis Date Encounter for supervision of other normal , first trimester 12/18/2017 Kidney stones 10/2015 Past Surgical History: Procedure Laterality Date NO PREVIOUS SURGERY No data on file. 3rd Problems (from 12/18/17 to present) No problems associated with this episode. NEDRA Simeon.....12/24/2017 8:03 AM Assessment & Plan (06/29/2018 9:27 AM FACILITY REHAB DIRECTOR): Wishes Tubal if has C section consent signed 06/29/2018 Signed electronically by Faustina Scott MD ......... 9:27 AM 06/29/2018 Myopia of left eye with astigmatism 08/12/2016 Myopia of right eye 08/12/2016 Renal calculus, left 10/20/2015 Overview (10/20/2015): Multiple, asymptomatic. Gastritis Resolved Problems Problem Noted Date Diagnosed Date Resolved Date Group B streptococcal infection in 3 12/07/2014 Supervision of other normal 06/24/2012 06/06/2014 Overview (01/19/2013): Denies genetic testing Flu shot given 08/04/2012 Will need DTP third trimester or after delivery. Done 12/28/2012 Group B strep POSITIVE Supervision of normal first 07/05/2010 01/02/2011 Immunizations Name Administration Dates Next Due AMB Influenza, IIV4 PF (=>6 mos Flulaval,Fluzone Fluarix)(Flu Clinic Only) 07/05/2017,05/10/2014 COVID-19 vaccine (RoyalCactus NTech 30mcg/0.3mL) 12YO+ RUMA-SUCROSE PF, MDV 10/09/2021,09/17/2021 HPV 9 (Gardasil 9) 08/27/2016 Influenza, IIV3 (Age >=3 years) 06/03/2013,08/04,06/28/2010 Influenza, IIV4 06/20/2020,11/02/2015,05/10/2014 Tdap 05/04/2018,12/28/2012 Tuberculin (PPD) 12/12/2016 Family History Medical History Relation Name Comments Good Health Brother Good Health Daughter Diabetes Father Aneurysm Mother brain 2 Heart Disease Mother MD at 41 Hypertension Mother Diabetes Paternal Aunt Cancer-breast Paternal Grandmother Age 60 or so. Diabetes Paternal Uncle Good Health Son Relation Name Status Comments Brother Daughter Father Mother Paternal Aunt Paternal Grandmother Paternal Uncle Son Social History Tobacco Use Types Packs/Day Years Used Date Smoking Tobacco: Never Smokeless Tobacco: Never Tobacco Cessation:Counseling Given: No Alcohol Use Standard Drinks/Week Comments No 0 (1 standard drink = 0.6 oz pur e alcohol) PHQ-2 Answer Date Recorded PHQ-2 TOTAL SCORE 6 12/31/2022 Social Connections Answer Date Recorded Frequency of Communication with Friends and Fami ly Not on file 05/07/2024 Financial Resource Strain Answer Date R ecorded Difficulty of Paying Living Expenses 3 05/06/2023 Difficulty of Paying Living Expenses Not on file 05/06/2023 Food Insecurity Answer Date Recorded Worried About Running Out of Food in the Last Ye ar 1 05/06/2023 Transportation Needs Answer Date Record ed Lack of Transportation (Medical) 1 05/06/2023 Housing Stability Answer Date Recorded Unable to Pay for Housing in the Last Year 1 05/06/2023 Comments No Sex and Gender Information Value Date Recorded Sex Assigned at Not on file Legal Sex Female 8:00 AM FACILITY REHAB DIRECTOR Gender Identity Female 07/09/2020 11:08 AM FACILITY REHAB DIRECTOR Sexual Orientation Not on file Occupation Industry Job Start Date Job End Date Unemployed Not on file Not on file Not on file Obstetrics History Para Term AB IAB SAB Ectopic Multiple Livin g Live Births 3 2 2 0 0 0 0 0 0 3 3 Date Outcome GA Total Labor Labor/2nd/3rd Weight Sex Type Anes PTL Dominick A1 A5 Name Clin 2010 Term 37w 0d F Vag Epidur al Livin g Marcelle da Complications:None Delivery Location:[facility] Comments:[facility]. Please review and update details. 2012 38w 0d M Vag N Livin g Gama o Comments:[facility] [employer] [facility]. Please review and update details. 2017 Term 39w 4d Vag Livin g Last Filed Vital Signs Vital Sign Reading Time Taken Comments Blood Pressure 126/88 02/28/2024 9:20 AM CDT Pulse 84 02/28/2024 9:20 AM CDT Temperature 37 C (98.6 F) 02/28/2024 9:20 AM CDT Respiratory Rate 16 02/28/2024 9:20 AM CDT Oxygen Saturation 100% 02/28/2024 9:20 AM CDT Inhaled Oxygen Concentration - - Weight 80.7 kg (178 lb) 02/28/2024 9:20 AM CDT Height 152.4 cm (5') 12/10/2023 7:26 AM CDT Body Mass Index 34.76 12/10/2023 7:26 AM CDT Plan of Treatment Health Maintenance Due Date Last Done Comments Hepatitis C screening for age 18-79 11/26/2009 Pap test for age 21-65 06/20/2023 0, 12/23/2017, 06/06/2015, Additional history exists Depression screening for age 12+ 01/04/2024 01/03/2023, 12/31/2022, 11/12/2022, Additional history exists COVID-19 vaccine series (2023- season) 2024 10/09/2021, 09/17/2021 Influenza for age 9-49 04/18/2024 0, 07/05/2017, 11/02/2015, Additional history exists BMI (ht and wt on same day) for age 18+ 12/09/2024 12/10/2023, 11/12/2022, 10/25/2021, Additional history exists Tetanus booster 05/04/2028 05/04/2018, 12/28/2012 HIV for age 15-65 Completed 12/18/2017, , 06/28/2010 Tdap Completed 05/04/2018, 12/28/2012 Pneumococcal series for age 6-49 Aged Out No longer eligible based on patient's age to complete this topic Procedures Procedure Name Priority Date/Time Associated Diagnosis Comments CLOTHING CUTTER THIN PREP PAP SCREEN IMAGED Routine 06/20/2020 8:20 AM FACILITY REHAB DIRECTOR Pap smear for cervical cancer screening ANTI HIV 1/2 Routine 12/18/2017 12:52 PM CDT Encounter for supervision of other normal , first trimester from Last 3 Months or Most Recently Relevant to Health Maintenance Results * CLOTHING CUTTER THIN PREP PAP SCREEN IMAGED (06/20/2020 8:20 AM FACILITY REHAB DIRECTOR) Case Report Gynecologic Cytology Report Case: [id number] Authorizing Provider: Marya Scott Collected: 06/20/2020 0820 MD Lizbeth Ordering Location: [facility] Received: 06/20/2020 0915 Clinic First Screen: Caleb Rosas Specimen: CLOTHING CUTTER ThinPrep Vial Screening, Cervical 06/28/2020 1:33 PM FACILITY REHAB DIRECTOR [facility]-C ENTRAL LABORATORY INTERPRETATION/ RESULT NEGATIVE FOR INTRAEPITHELIAL LESION OR MALIGNANCY (NIL) (none) 06/28/2020 1:33 PM FACILITY REHAB DIRECTOR [facility] ENTRME LABORATORY IMEN ADEQUACY Satisfactory for evaluation Endocervical component present 06/28/2020 1:33 PM FACILITY REHAB DIRECTOR [facility] ENTRAL LABORATORY HPV REQUEST HPV if ASCUS 06/28/2020 1:33 PM [facility]HAB [facility] Date of LMP 06/15/2020 06/28/2020 1:33 PM FACILITY REHAB DIRECTOR [facility] EN[facility] LAB[facility] Last Pap Date 12/23/17 06/28/2020 1:33 PM FACILITY REHAB DIRECTOR [facility] ENTRAL LAB[facility] Last Pap Result NIL 0 1:33 PM FACILITY REHAB DIRECTOR [facility] ENTRAL LABORATORY Abnormal Pap or Orange Bx in last 5 years No 06/28/2020 1:33 PM FACILITY REHAB DIRECTOR [facility] EN[facility]AL LAB[facility]ORY Menstrual Status Regular Periods 06/28/2020 1:33 PM FACILITY REHAB DIRECTOR [facility] ENTRAL LABORATORY Orange Bx Done Today No 06/28/2020 1:33 PM FACILITY REHAB DIRECTOR [facility] ENTRAL LABOR[facility]ORY Additional Information None given 06/28/2020 1:33 PM FACILITY REHAB DIRECTOR [facility] ENTRAL LABORATORY Comment: Cytology is screened at [facility] - [address], [place] [address] and [facility] - [address] [place] [address] and [facility] - [address] [place] [address] Interpreted at [facility] - [address], [place] [address] Automated Review Successful 06/28/2020 1:33 PM FACILITY REHAB DIRECTOR [facility] ENTRAL LABORATORY Comment:Specimen processed s uccessfully by automated deli slicer device, ThinPrep Imaging System, [employer] Note The pap test is a screening technique, not a diagnostic procedure. It is used primarily to screen for squamous cancers and precursor lesions. Published studies have shown that it is subject to both false negative and false positive results. The pap test should not be used as the sole means to diagnose or exclude pre-malignant and malignant lesions. 06/28/2020 1:33 PM FACILITY REHAB DIRECTOR [facility] ENTRAL LABORATORY Other (Cervical) Non-Blood / Unknown 06/20/2020 8:20 AM FACILITY REHAB DIRECTOR 06/20/2020 9:15 AM FACILITY REHAB DIRECTOR us Marya Scott MD PATHOLOGY/CYTOLOGY Final Result Performing Organization Address City/[facility]/ZIP Co de Phone Number [facility] [address] [place] [address], * ANTI HIV 1/2 (12/18/2017 12:52 PM CDT) HIV-1/HIV-2 ANTIBODY Non-Reacti ve Non-Reacti ve 12/18/2017 5:20 PM CDT [facility] TRAL LABORATORY Comment:HIV-1 p24 and HIV-1/ HIV-2 Ab not detected. Blood BLOOD SPECIMEN / Unknown Venipuncture / Unknown 12/18/2017 12:52 PM CDT 12/18/2017 12:52 PM CDT us Roslyn Wiggins CHIEF INVESTMENT OFFICER SEND OUTS F inal Result Performing Organization Address City/[facility]/ZIP Co de Phone Number [facility] [address] [place] [address], from Last 3 Months or Most Recently Relevant to Health Maintenance Insurance [employer] [id number] Advance Directives * Full Code (Latest Code Status on File) Date Activated Date Inactivated Comments 12/26/2020 12:16 PM 12/26/2020 5:02 PM Question Answer Comments Code Status Discussion: Discussed * Full Code Date Activated Date Inactivated Comments 07/25/2020 6:35 AM 07/25/2020 4:31 PM Question Answer Comments Code Status Discussion: Not Discussed Care Teams Public Speaking Professor Relationship Specialty Start Date End Date Marya Scott MD [address] [place] [address] PCP - General Family Practice 06/18/12
--- OUTSIDE RECORDS SUMMARY | 2024-09-24 19:45 | XMS_ITS | Encounter Summary ---
Author Organization [facility] Address [address] [place] [address] Care Team Providers Care Seamer Operator Name Role Phone Niki Larkin M.D. Primary Care Provider [phone]- [phone] Encounter Details Date Type Department Care Team (Latest Contact Info) Description 09/16/2024 2:31 PM STRETCHER LEVELER OPERATOR - 09/16/2024 11:59 PM [facility] Hospital Encounter Department of Laboratory Medicine in [address] [phone] Elen Larios, PARAGLIDING INSTRUCTOR, C.N.P. [address] [place] [phone] Screening Test Laboratory; Human Immunodeficiency Virus Screening Discharge Disposition: Home or Self Care Social History Tobacco Use Types Packs/Day Years Used Date Smoking Tobacco: Never Smokeless Tobacco: Never Comments:Never been a smoker . Alcohol Use Standard Drinks/Week Comments Never 0 (1 standard drink = 0.6 oz pur e alcohol) [facility] Utilities Answer Date Recorded In the past 12 months has [employer] electric, gas, oil, or water company threatened [...] your living situation today? I have a [facility] place to live 09/16/2024 Comments No Sex and Gender Information Value Date Recorded Sex Assigned at Female 05/13/2023 8:15 AM CDT Legal Sex Female 10:45 AM CDT Gender Identity Female 05/13/2023 8:15 AM CDT Sexual Orientation Straight 05/13/2023 8: 15 AM CDT documented as of this encounter Medications at Time of Discharge acetaminophen (TYLENOL) 325 mg tablet Take 500 mg by mouth every 6 (six) hours. 08/01/2020 B complex-vitamins (BALANCE B-50) tablet Take 1 tablet by mouth daily. Bacillus coagulans 800 million cell tablet Take 1 capsule by mouth daily. 11/12/2022 cholecalciferol (VITAMIN D3) 125 mcg (5,000 Unit) capsule Take 125 mcg by mouth daily. UNABLE TO FIND Take 1 each by mouth daily. Med Name: Magnesium supplement 350 mg documented as of this encounter Plan of Treatment Not on file documented as of this encounter Procedures Procedure Name Priority Date/Time Associated Diagnosis Comments HIV-1/-2 AG AND AB SCREEN, PLASMA Routine 09/16/2024 2:38 PM STRETCHER LEVELER OPERATOR Human Immunodeficiency Virus Screening HCV AB SCRN W/REFLEX TO HCV PCR, S Routine 09/16/2024 2:38 PM STRETCHER LEVELER OPERATOR Screening Test Laboratory BASIC METABOLIC PANEL, S/P Routine 09/16/2024 2:38 PM STRETCHER LEVELER OPERATOR Screening Test Laboratory documented in this encounter Results * HCV Ab Scrn w/Reflex to HCV PCR, Serum (09/16/2024 2:38 PM STRETCHER LEVELER OPERATOR) HCV Ab Screen, S Negative Negative 09/16/2024 9:23 PM STRETCHER LEVELER OPERATOR ECLR Blood (Blood, Venous) 09/16/2024 2:38 PM STRETCHER LEVELER OPERATOR 09/16/2024 8:33 PM STRETCHER LEVELER OPERATOR Narrative [facility] - 09/16/2024 9:23 PM STRETCHER LEVELER OPERATOR Specimen Information: Specimen ID: [id number] Specimen Type: Blood Specimen Collection Start Date: 09/16/2024 2:38 PM Specimen Received Date: 09/16/2024 8:33 PM Specimen ID: [id number] Specimen Type: Blood Specimen Collection Start Date: 09/16/2024 2:38 PM Specimen Received Date: 09/16/2024 8:33 PM us Elen Larios APRN, C.N.P. LAB MICROBIOLOGY - BL OOD ORDERABLES Final Result [facility] [address] [place] [id number], [facility] [[email or web address]] ECLR [facility] in [address] [address] * HIV-1/-2 Ag and Ab Screen, Plasma (09/16/2024 2:38 PM STRETCHER LEVELER OPERATOR) Pathologist [facility] HIV Ag/Ab Screen, P Negative Negative 09/17/2024 9:43 AM STRETCHER LEVELER OPERATOR ECLR Comment: Negative result does not rule out HIV infection. If exposure to HIV infection occurred <14 days ago, contact the laboratory to request addition of HIV-1/HIV-2 RNA detection, Plasma (HIP12). HIV-1 p24 Ag Screen, P Negative Negative 09/17/2024 9:43 AM STRETCHER LEVELER OPERATOR ECLR Comment: Negative result does not rule out HIV infection. If exposure to HIV infection occurred <14 days ago, contact the laboratory to request addition of HIV-1/HIV-2 RNA detection, Plasma (HIP12). HIV-1 Ab Screen, P Negative Negative 09/17/2024 9:43 AM STRETCHER LEVELER OPERATOR ECLR Comment: Negative result does not rule out HIV infection. If exposure to HIV infection occurred <14 days ago, contact the laboratory to request addition of HIV-1/HIV-2 RNA detection, Plasma (HIP12). HIV-2 Ab Screen, P Negative Negative 09/17/2024 9:43 AM STRETCHER LEVELER OPERATOR ECLR Comment: Negative result does not rule out HIV infection. If exposure to HIV infection occurred <14 days ago, contact the laboratory to request addition of HIV-1/HIV-2 RNA detection, Plasma (HIP12). Blood (Blood, Venous) 09/16/2024 2:38 PM STRETCHER LEVELER OPERATOR 09/16/2024 8:33 PM STRETCHER LEVELER OPERATOR us Elen Larios APRN, C.N.P. LAB MICROBIOLOGY - BL OOD ORDERABLES Final Result [facility] [address] [place] [id number], [facility] [[email or web address]] ECLR [facility] in [address] [address] * Basic Metabolic Panel (09/16/2024 2:38 PM STRETCHER LEVELER OPERATOR) [facility] Potassium, P 4.2 3.6 - 5.2 mmol/L 09/16/2024 2:58 PM STRETCHER LEVELER OPERATOR CNFL Sodium, P 139 135 - 145 mmol/L 09/16/2024 2:58 PM STRETCHER LEVELER OPERATOR CNFL Chloride, P 103 98 - 107 mmol/L 09/16/2024 2:58 PM STRETCHER LEVELER OPERATOR CNFL Bicarbonate, P 24 22 - 29 mmol/L 09/16/2024 2:58 PM STRETCHER LEVELER OPERATOR CNFL Anion Gap, P 12 7 - 15 09/16/2024 2:58 PM STRETCHER LEVELER OPERATOR CNFL BUN (Blood Urea Nitrogen), P 12 6 - 21 mg/dL 09/16/2024 2:58 PM STRETCHER LEVELER OPERATOR CNFL Creatinine 0.61 0.59 - 1.04 mg/dL 09/16/2024 2:58 PM STRETCHER LEVELER OPERATOR CNFL Estimated GFR (eGFR) >90 >=60 mL/min/BSA 09/16/2024 2:58 PM STRETCHER LEVELER OPERATOR CNFL Comment: Estimated GFR calculated using the 2020 CKD_EPI creatinine equation. Calcium, Total, P 8.8 8.6 - 10.0 mg/dL 09/16/2024 2:58 PM STRETCHER LEVELER OPERATOR CNFL Glucose, P 101 70 - 140 mg/dL 09/16/2024 2:58 PM STRETCHER LEVELER OPERATOR CNFL Blood (Blood, Venous) 09/16/2024 2:38 PM STRETCHER LEVELER OPERATOR 09/16/2024 2:40 PM STRETCHER LEVELER OPERATOR us Elen Larios APRN, C.N.P. LAB BLOOD ADD-ON Ashanti l Result [facility] [address] [place] [id number], [facility] [[email or web address]] CNFL [facility] in [address] [address] documented in this encounter Visit Diagnoses Diagnosis Screening Test Laboratory Human Immunodeficiency Virus Screening documented in this encounter Care Teams Seamer Operator Relationship Specialty Start Date End Date Niki Larkin M.D. [address] [place] [phone] PCP - General Family Medicine 09/08/24 documented as of this encounter
--- OUTSIDE RECORDS SUMMARY | 2024-09-24 19:45 | XMS_ITS | Encounter Summary ---
Author Organization [facility] Address [address] [place] [address] Care Team Providers Care Fur Polisher Name Role Phone Niki Larkin M.D. Primary Care Provider +1- [phone] Encounter Details Date Type Department Care Team (Latest Contact Info) Description 09/16/2024 2:31 PM TREASURY DIRECTOR - 09/16/2024 11:59 PM [facility] Hospital Encounter Department of Laboratory Medicine in [address] [phone] Elen Larios, SUPERVISOR [employer], C.N.P. [address] [place] [phone] Screening Test Laboratory Discharge Disposition: Home or Self Care Social History Tobacco Use Types Packs/Day Years Used Date Smoking Tobacco: Never Smokeless Tobacco: Never Comments:Never been a smoker . Alcohol Use Standard Drinks/Week Comments Never 0 (1 standard drink = 0.6 oz pur e alcohol) [facility] Utilities Answer Date Recorded In the past 12 months has [employer] electric, gas, oil, or water company threatened [...] your living situation today? I have a [facility] place to live 09/16/2024 Comments No [...] IF INDICATED, U Routine 09/16/2024 2:46 PM TREASURY DIRECTOR Screening Test Laboratory documented in this encounter Results * Urinalysis with Microscopic if Indicated: Urine, Midstream (09/16/2024 2:46 PM TREASURY DIRECTOR) Source Urine, Urine, Midstream 09/16/2024 2:46 PM TREASURY DIRECTOR CNFL Clarity Clear Clear 09/16/2024 2:49 PM TREASURY DIRECTOR CNFL Color Yellow 09/16/2024 2:49 PM TREASURY DIRECTOR CNFL Comment: ----REFERENCE VALUE---- Colorless Yellow Debora Blood Negative Negative 09/16/2024 2:49 PM TREASURY DIRECTOR CNFL Nitrite Negative Negative 09/16/2024 2:49 PM TREASURY DIRECTOR CNFL Leukocyte Esterase Negative Negative 09/16/2024 2:49 PM TREASURY DIRECTOR CNFL Protein Negative mg/dL 09/16/2024 2:49 PM TREASURY DIRECTOR CNFL Comment: ----REFERENCE VALUE---- Negative Trace Glucose Negative Negative mg/dL 09/16/2024 2:49 PM TREASURY DIRECTOR CNFL Ketones, QI(U) Negative Negative mg/dL 09/16/2024 2:49 PM TREASURY DIRECTOR CNFL Bilirubin Negative Negative 09/16/2024 2:49 PM TREASURY DIRECTOR CNFL pH 7.0 5.0 - 8.0 09/16/2024 2:49 PM TREASURY DIRECTOR CNFL Specific Rogers 1.020 1.001 - 1.035 09/16/2024 2:49 PM TREASURY DIRECTOR CNFL Urobilinogen 0.2 0.2 - 1.0 mg/dL 09/16/2024 2:49 PM TREASURY DIRECTOR CNFL Urine (Urine, Midstream) 09/16/2024 2:46 PM TREASURY DIRECTOR 09/16/2024 2:46 PM TREASURY DIRECTOR us Elen Larios APRN, C.N.P. LAB URINE ORDERABLES Final Result [facility] [address] [place] [id number], [facility] in [address] [address] documented in this encounter Visit Diagnoses Diagnosis Screening Test Laboratory documented in this encounter Care Teams Fur Polisher Relationship Specialty Start Date End Date Niki Larkin M.D. [address] [place] [phone] PCP - General Family Medicine 09/08/24 documented as of this encounter
--- OUTSIDE RECORDS SUMMARY | 2024-09-24 19:45 | XMS_ITS | Encounter Summary ---
Author Organization [facility] Address [address] [place] [address] Care Team Providers Care Camp Director Name Role Phone Niki Larkin M.D. Primary Care Provider [phone] Reason for Visit * Reason Comments Annual Exam Lower abdominal cram ping while passing stool worse during menstrual cycle. Has been having on and off back pain since mid July and urine has greenish color when pain is present. Discuss pap had procedural on 09/02/24. * Appointment Request (Routine) - Closed Specialty Diagnoses / Procedures Referred By Darien nieto Referred To Contact Family Medicine Referral ID Status Reason Start Date Expiration Date Visits Re quested Visits Authorized [id number] Closed 09/08/2024 12/09/2025 1 1 Encounter Details Date Type Department Care Team (Latest Contact Info) Description 09/16/2024 1:30 PM [facility] Comprehensive Visit Department of Family Medicine, [facility], in [address] [phone] Elen Larios APRN, C.N.P. [address] [place] [phone] Human Immunodeficiency Virus Screening; Screening Test Laboratory Discharge Disposition: Home or Self Care Social History Tobacco Use Types Packs/Day Years Used Date Smoking Tobacco: Never Smokeless Tobacco: Never Comments:Never been a smoker . Alcohol Use Standard Drinks/Week Comments Never 0 (1 standard drink = 0.6 oz pur e alcohol) [facility] Utilities Answer Date Recorded In the past 12 months has [facility] [employer], gas, oil, or water [employer] threatened to shut off services in your [...] your living situation today? I have a [facility] place to live 09/16/2024 Comments No Sex and Gender Information Value Date Recorded Sex Assigned at Female 05/13/2023 8:15 AM CDT Legal Sex Female 10:45 AM CDT Gender Identity Female 05/13/2023 8:15 AM CDT Sexual Orientation Straight 05/13/2023 8: 15 AM CDT documented as of this encounter Last Filed Vital Signs Vital Sign Reading Time Taken Comments Blood Pressure 111/78 09/16/2024 1:24 PM [facility] Pulse 69 09/16/2024 1:24 PM [facility] Temperature 36.9 C (98.4 F) 09/16/2024 1:24 PM [facility] Respiratory Rate - - Oxygen Saturation - - Inhaled Oxygen Concentration - - Weight 81.6 kg (179 lb 14.3 oz) 09/16/2024 1:24 PM [facility] Height 151.6 cm (4' 11.69) 09/16/2024 1:24 PM C Body Mass Index 35.51 09/16/2024 1:24 PM [facility] documented in this encounter Plan of Treatment Not on file documented as of this encounter Results * Urinalysis with Microscopic if Indicated: Urine, Midstream (09/16/2024 2:46 PM [facility]) Source Urine, Urine, Midstream 09/16/2024 2:46 PM [facility] CNFL Clarity Clear Clear 09/16/2024 2:49 PM [facility] Color Yellow 09/16/2024 2:49 PM [facility] Comment: ----REFERENCE VALUE---- Colorless Yellow Debora Blood Negative Negative 09/16/2024 2:49 PM [facility] Nitrite Negative Negative 09/16/2024 2:49 PM [facility] Leukocyte Esterase Negative Negative 09/16/2024 2:49 PM [facility] Protein Negative mg/dL 09/16/2024 2:49 PM [facility] Comment: ----REFERENCE VALUE---- Negative Trace Glucose Negative Negative mg/dL 09/16/2024 2:49 PM [facility] Ketones, QI(U) Negative Negative mg/dL 09/16/2024 2:49 PM [facility] Bilirubin Negative Negative 09/16/2024 2:49 PM [facility] CN[facility] pH 7.0 5.0 - 8.0 09/16/2024 2:49 PM [facility] Specific Floris 1.020 1.001 - 1.035 09/16/2024 2:49 PM [facility] Urobilinogen 0.2 0.2 - 1.0 mg/dL 09/16/2024 2:49 PM [facility] Urine (Urine, Midstream) 09/16/2024 2:46 PM [facility] 09/16/2024 2:46 PM [facility] us Elen Larios APRN, C.N.P. LAB URINE ORDERABLES Final Result Performing Organization Address City/[facility] Co de Phone Number [facility] [address] [place] [phone], [facility] CNFL [facility] in [address] [address] * HCV Ab Scrn w/Reflex to HCV PCR, Serum (09/16/2024 2:38 PM [facility]) HCV Ab Screen, S Negative Negative 09/16/2024 9:23 PM [facility] ECLR Blood (Blood, Venous) 09/16/2024 2:38 PM [facility] 09/16/2024 8:33 PM [facility] Narrative [facility] - 09/16/2024 9:23 PM [facility] Specimen Information: Specimen ID: [id number] Specimen Type: Blood Specimen Collection Start Date: 09/16/2024 2:38 PM Specimen Received Date: 09/16/2024 8:33 PM Specimen ID: [id number] Specimen Type: Blood Specimen Collection Start Date: 09/16/2024 2:38 PM Specimen Received Date: 09/16/2024 8:33 PM us Elen Larios APRN, C.N.P. LAB MICROBIOLOGY - BL OOD ORDERABLES Final Result [facility] [address] [place] [phone], [facility] ECLR [facility] in [address] [address] * HIV-1/-2 Ag and Ab Screen, Plasma (09/16/2024 2:38 PM [facility]) HIV Ag/Ab Screen, P Negative Negative 09/17/2024 9:43 AM [facility] E[facility] Comment: Negative result does not rule out HIV infection. If exposure to HIV infection occurred <14 days ago, contact the laboratory to request addition of HIV-1/HIV-2 RNA detection, Plasma (HIP12). HIV-1 p24 Ag Screen, P Negative Negative 09/17/2024 9:43 AM [facility] ECL[facility] Comment: Negative result does not rule out HIV infection. If exposure to HIV infection occurred <14 days ago, contact the laboratory to request addition of HIV-1/HIV-2 RNA detection, Plasma (HIP12). HIV-1 Ab Screen, P Negative Negative 09/17/2024 9:43 AM [facility] ECL[facility] Comment: Negative result does not rule out HIV infection. If exposure to HIV infection occurred <14 days ago, contact the laboratory to request addition of HIV-1/HIV-2 RNA detection, Plasma (HIP12). HIV-2 Ab Screen, P Negative Negative 09/17/2024 9:43 AM [facility] ECL[facility] Comment: Negative result does not rule out HIV infection. If exposure to HIV infection occurred <14 days ago, contact the laboratory to request addition of HIV-1/HIV-2 RNA detection, Plasma (HIP12). Blood (Blood, Venous) 09/16/2024 2:38 PM [facility] 09/16/2024 8:33 PM [facility] Elen Larios APRN C.N.P. LAB MICROBIOLOGY - BL OOD ORDERABLES Final Result [facility] [address] [place] [address], [facility] ECLR [facility] in [address] [address] * Basic Metabolic Panel (09/16/2024 2:38 PM [facility]) Potassium, P 4.2 3.6 - 5.2 mmol/L 09/16/2024 2:58 PM [facility] CNFL Sodium, P 139 135 - 145 mmol/L 09/16/2024 2:58 PM [facility] Chloride, P 103 98 - 107 mmol/L 09/16/2024 2:58 PM [facility] Bicarbonate, P 24 22 - 29 mmol/L 09/16/2024 2:58 PM [facility] CN[facility] Anion Gap, P 12 7 - 15 09/16/2024 2:58 PM [facility] CN[facility] BUN (Blood Urea Nitrogen), P 12 6 - 21 mg/dL 09/16/2024 2:58 PM [facility] Creatinine 0.61 0.59 - 1.04 mg/dL 09/16/2024 2:58 PM [facility] CN[facility] Estimated GFR (eGFR) >90 >=60 mL/min/BSA 09/16/2024 2:58 PM [facility] CN[facility] Comment: Estimated GFR calculated using the 2020 CKD_EPI creatinine equation. Calcium, Total, P 8.8 8.6 - 10.0 mg/dL 09/16/2024 2:58 PM [facility] Glucose, P 101 70 - 140 mg/dL 09/16/2024 2:58 PM [facility] CN[facility] Blood (Blood, Venous) 09/16/2024 2:38 PM [facility] 09/16/2024 2:40 PM [facility] Elen Larios APRN, C.N.P. LAB BLOOD ADD-ON Ashanti l Result [facility] [address] [place] [phone], [facility] CN[facility] in [address] [address] documented in this encounter Visit Diagnoses Diagnosis Human Immunodeficiency Virus Screening Screening Test Laboratory Screening Test Laboratory Human Immunodeficiency Virus Screening documented in this encounter Care Teams Camp Director Relationship Specialty Start Date End Date Niki Larkin M.D. [address] [place] [phone] PCP - General Family Medicine 09/08/24 documented as of this encounter
[2024-09-24 19:49] VITALS: BP 134/90; PULSE 91; RESP 18; TEMP 37.6; O2SAT 100; BMI 41.8
--- NOTE | 2024-09-24 20:12 | ED.GENADULT ---
HPI - General Adult General Time Seen by Provider: 20:12 Date Seen: 09/24/24 Chief complaint: Chest Pain Stated complaint: Chest soreness, light headed, headache Time Seen by Provider: 09/24/24 19:50 Source: patient and RN notes reviewed Mode of arrival: ambulatory Limitations: no limitations History of Present Illness HPI narrative: This 33-year-old female started it with headache on Friday, achy upper back, achy chest. She is not coughing but feels pressure in the chest. She feels palpitations at times. She has felt lightheaded. Her appetite has been diminished but she is trying the eat. She is still drinking. No Tylenol, no abdominal pain. She has done Tylenol an aspirin which has helped. She has felt warm at times but has not taken her temperature. She has not had any chills. She does work at home, no known ill contacts. She is tearful about the palpitations, wants to know if she is having a heart attack. No visual changes, no sore throat. Patient notes that she has a history of trigeminal neuralgia, she is starting to feel some of that type of pain, did have some left ear pain with this headache starting. She had been to [place] for this, states she did have an MRI down they are not showing any findings as a cause for the trigeminal neuralgia. She did end up getting her wisdom teeth out which did seem to help. Related Data Allergies Allergy/AdvReac Type Severity Reaction Status Date / Time No Known Drug Allergies Allergy Verified 09/24/24 19:58 Review of Systems Status of ROS: Reports: 6 or more systems reviewed and unremarkable except as noted in History and below [facility] Social History Smoking Status: Never smoker Do you use any of these nicotine containing products: None How often do you have a drink containing alcohol: never AUDIT-C Alcohol total score: 0 Non-prescribed substance use: denies use Exam Const: Vital Signs, click to edit/add: Vital Signs - 24 hr 09/24/24 19:49 09/24/24 20:20 09/24/24 21:55 Temperature 99.6 F Pulse Rate [Right Pulse Oximeter] 91 71 Respiratory Rate 18 16 Blood Pressure [Le ft Upper Arm] 134/90 H 118/74 Pulse Oximetry 100 97 99 Oxygen Delivery Me thod Room Air Room Air Patient is a 33-year-old female that is alert, interactive, no apparent distress but tearful initially. Pupils equal round reactive, sclerae clear, extraocular muscles intact. Able to speak in complete sentences, oropharynx normal. Symmetrical facial function. Neck is supple, no adenopathy, no thyromegaly masses or nodules. Neck is supple. She sits up easily, lungs are clear, good air entry, no wheeze or crackles. CV regular rate and rhythm, no murmur, normal S1-S2, no S3-S4. No ectopy while I am listening. Abdomen is soft, nontender, nondistended, no organomegaly. Patient was ambulatory into the ED of her own accord. No gross focal neurologic findings. Documenting provider has reviewed patient's vital signs: yes Course Course ED Course: Was able to review EKG with patient in did review with her that there was a PVC, she broke down crying, I reassured her that this is benign, could be affected by viral illness. There is 1 solitary PVC seen. Reassurance was definitely offered. We will do portable chest x-ray, nursing staff had already collect the triple viral swab. Will do blood work on her. Probable viral illness given the extent that we are seen in the public. She is hemodynamically stable, neurologically intact. Reevaluation(s) Time of Reevaluation #1: 22:12 Reevaluation #1: Have reviewed with patient her normal labs, normal chest x-ray. She did not test positive for the triple viral swab but we reviewed that there are far more viruses out there that can cause symptoms that we are not testing for. She wanted to know if her headache, nausea, fevers were causing the palpitations or vice versa. Reviewed with her that these were all likely stemming from the virus. We did discuss that the PVCs could be suppressed with medication but I would recommend just a period of observation for her, hopefully this will resolve as she feels better. We discussed really pushing fluids. She does not drink much caffeine. She is feeling better with medicines given, will send her with Toradol and Zofran from [employer]. Vital Signs Vital signs: Initial Vital Signs Temperature 99.6 F 09/24/24 19:49 Temperature Source Temporal Artery Scan 09/24/24 19:49 Pulse Rate 91 09/24/24 19:49 Pulse Rhythm Regular 09/24/24 19:49 Respiratory Rate 18 09/24/24 19:49 Blood Pressure 134/90 H 09/24/24 19:49 Blood Pressure Mean 104 09/24/24 19:49 Blood Pressure Position Sitting 09/24/24 19:49 Pulse Oximetry 100 09/24/24 19:49 Oxygen Delivery Method Room Air 09/24/24 19:49 Vital Signs Temperature 99.6 F 09/24/24 19:49 Pulse Rate 91 09/24/24 19:49 Respiratory Rate 18 09/24/24 19:49 Blood Pressure 134/90 H 09/24/24 19:49 Pulse Oximetry 100 09/24/24 19:49 Oxygen Delivery Method Room Air 09/24/24 19:49 Temperature 99.6 F 09/24/24 19:49 Pulse Rate 71 09/24/24 21:55 Respiratory Rate 16 09/24/24 21:55 Blood Pressure 118/74 09/24/24 21:55 Pulse Oximetry 99 09/24/24 21:55 Oxygen Delivery Method Room Air 09/24/24 21:55 Medications Administered Medications: Discontinued Medications Generic Name Dose Route Start Last Admin Trade Name Freq PRN Reason Stop Dose Admin Sodium Chloride 500 mls @ 500 mls/hr 09/24/24 20:20 09/24/24 21:10 0.9 % Sodium Chloride 500 Ml IV 09/24/24 21:19 Infused .Q1H ONE Infusion Ketorolac Tromethamine 15 mg 09/24/24 20:20 09/24/24 20:59 Ketorolac 15 Mg/Ml Inj IVP 09/24/24 20:21 15 mg ONCE ONE Administration Medical Decision Making Lab Data Lab results reviewed: Yes I reviewed the patient's lab results Labs: Lab Results 09/24/24 09/24/24 09/24/24 Range/Units 19:59 20:15 20:21 WBC 6.29 (4.50-11.00) K/uL RBC 4.68 (4.00-5.20) m/uL Hgb 11.5 L (12.0-16.0) gm/dL Hct 37.1 (33.0-51.0) % MCV 79 L (80-100) fL MCH 25 L (26-34) pg MCHC 31 L (32-36) gm/dL RDW Coeff of Wen 17.4 H (11.5-15.5) % Plt Count 332 (140-440) K/uL Neut % (Auto) 56.3 (42.0-72.0) % Lymph % (Auto) 32.3 (20-44) % Evans % (Auto) 7.9 (0.0-11.0) % Eos % (Auto) 2.4 (0.0-7.0) % Baso % (Auto) 0.5 (0.0-3.0) % Neut # (Auto) 3.54 (1.7-7.0) K/uL Lymph # (Auto) 2.03 (0.90-2.90) K/uL Evans # (Auto) 0.50 (0.00-0.90) K/UL Eos # (Auto) 0.15 (0.00-0.50) K/uL Baso # (Auto) 0.03 (0.00-0.30) K/uL Abs Immat Gran (auto) 0.04 (0.00-0.30) K/uL Imm/Tot Granulo (auto) 0.6 % Sodium 139 (135-149) mmol/L Potassium 3.6 (3.6-5.1) mmol/L Chloride 106 (96-114) mmol/L Carbon Dioxide 24 (20-32) mmol/L Anion Gap 9 (7-15) mEq/L BUN 12 (5-24) mg/dL Creatinine 0.6 (0.5-1.5) mg/dL Estimated Creat Clear 173.50 Estimated GFR 122 ml/min Glucose 124 H (60-115) mg/dL Calcium 9.4 (8.4-10.6) mg/dL Magnesium 2.3 (1.5-2.6) mg/dL Total Bilirubin 0.3 (0.1-1.5) mg/dL AST 18 (12-35) U/L ALT 15 (4-35) U/L Alkaline Phosphatase 55 (40-150) U/L Total Protein 7.7 (6.0-8.3) g/dL Albumin 4.7 (3.3-5.0) g/dL HCG, Qual (Negative) SARS-CoV-2 (PCR) Negative SARS-CoV-2 (Negative) Influenza Type A (PCR) Negative PCR FLU A (Negative) Influenza Type B (PCR) Negative PCR FLU B (Negative) RSV (PCR) Negative PCR RSV (Negative) Lab Acknowledgement POC Troponin I 0.00 L (0.01-0.04) ng/ml 09/24/24 09/24/24 Range/Units 20:45 21:05 WBC (4.50-11.00) K/uL RBC (4.00-5.20) m/uL Hgb (12.0-16.0) gm/dL Hct (33.0-51.0) % MCV (80-100) fL MCH (26-34) pg MCHC (32-36) gm/dL RDW Coeff of Wen (11.5-15.5) % Plt Count (140-440) K/uL Neut % (Auto) (42.0-72.0) % Lymph % (Auto) (20-44) % Evans % (Auto) (0.0-11.0) % Eos % (Auto) (0.0-7.0) % Baso % (Auto) (0.0-3.0) % Neut # (Auto) (1.7-7.0) K/uL Lymph # (Auto) (0.90-2.90) K/uL Evans # (Auto) (0.00-0.90) K/UL Eos # (Auto) (0.00-0.50) K/uL Baso # (Auto) (0.00-0.30) K/uL Abs Immat Gran (auto) (0.00-0.30) K/uL Imm/Tot Granulo (auto) % Sodium (135-149) mmol/L Potassium (3.6-5.1) mmol/L Chloride (96-114) mmol/L Carbon Dioxide (20-32) mmol/L Anion Gap (7-15) mEq/L BUN (5-24) mg/dL Creatinine (0.5-1.5) mg/dL Estimated Creat Clear Estimated GFR ml/min Glucose (60-115) mg/dL Calcium (8.4-10.6) mg/dL Magnesium (1.5-2.6) mg/dL Total Bilirubin (0.1-1.5) mg/dL AST (12-35) U/L ALT (4-35) U/L Alkaline Phosphatase (40-150) U/L Total Protein (6.0-8.3) g/dL Albumin (3.3-5.0) g/dL HCG, Qual Negative (Negative) SARS-CoV-2 (PCR) (Negative) Influenza Type A (PCR) (Negative) Influenza Type B (PCR) (Negative) RSV (PCR) (Negative) Lab Acknowledgement Test Added POC Troponin I (0.01-0.04) ng/ml Imaging Data Chest x-ray: Attestation: I have reviewed the pertinent imaging results. My impression: No pathology on my preliminary review. Radiologist's impression: Patient: CIERRA GOMEZ Facility:?[facility] Patient ID:?[id number] Site Patient ID:?[id number]. Site :?[id number] Study:?XRay-Chest 1 VIEW PORTABLE-09/24/2024 8:48:32 PM Ordering Physician:?Parag Modi Final Report: INDICATION: Chest discomfort. TECHNIQUE: Chest 1 view. COMPARISON: Chest radiograph 12/07/2015. FINDINGS: Cardiovascular: Heart size and vasculature are normal in caliber and appearance. Lungs and pleural spaces: Lungs are clear without focal consolidation. No sign of pleural effusion. No pneumothorax identified. Bones and soft tissues: No significant findings. IMPRESSION: No acute cardiopulmonary findings. Dictated by Sabrina Murcia MD @ 09/24/2024 9:17:14 PM (Electronic Signature) ECG Data Attestation: I personally reviewed and interpreted this ECG as follows: (Sinus rhythm, 80 beats per minute. PVC seen. No evidence of any ischemic change, pericarditis, infarct.) Prior ECG tracings: not available for review Discharge Plan Discharge Clinical Impression: Acute viral syndrome, Premature ventricular contraction Patient Disposition: Home, Self-Care Condition: Stable Instructions: Viral Syndrome (ED), Premature Ventricular Contractions (ED) Additional Instructions: Recommend staying hydrated. Can take Tylenol 1000 mg 3 times a day for symptoms, use Toradol 10 mg up to 4 times a day as needed for fever, headache or pain. Can use Zofran 4 mg up to 3 times a day as needed for nausea or vomiting. If you are not improving over the next 3-5 days, have concerns for worsening or new concerns, please seek re-evaluation. Activity Level: Activity as Tolerated Follow Up/Referrals: Marya Scott MD [Primary Care Provider] - Stand Alone Forms: [employer] Info Instructions
[2024-09-24 20:20] VITALS: O2SAT 97
--- NOTE | 2024-09-24 20:20 | CRLHL7_ITS ---
For Patients: As a result of the Century Cures Act, medical imaging exams and procedure reports are released immediately into your electronic medical record. You may view this report before your referring provider. If you have questions, please contact your health care provider. INDICATION: Chest discomfort. TECHNIQUE: Chest 1 view. COMPARISON: Chest radiograph 12/07/2015. FINDINGS: Cardiovascular: Heart size and vasculature are normal in caliber and appearance. Lungs and pleural spaces: Lungs are clear without focal consolidation. No sign of pleural effusion. No pneumothorax identified. Bones and soft tissues: No significant findings. IMPRESSION: No acute cardiopulmonary findings. Dictated by Sabrina Murcia MD @ 09/24/2024 9:17:14 PM (Electronically Signed)
--- OUTSIDE RECORDS SUMMARY | 2024-09-24 20:27 | XMS_ITS | Clinical Summary ---
Author Organization [facility] Address [address] [place] [address] Care Team Providers Care Truck Switcher Name Role Phone Niki Larkin M.D. Primary Care Provider +1- [phone] Source Comments Patient records contain information from all sites at [facility]. For routine questions regarding patient records, call [phone] during business hours, M-F 8:00 AM - 5:00 PM Central Time. Record requests for emergency care only can be directed to [phone] at any time.[facility] Allergies No known active allergies Medications acetaminophen [...] 09/20/2024 Results Follow-Up Department of Family Medicine, [facility], in [address] [phone] Elen Larios APRN, C.N.P. Basic Metabolic Panel, HIV-1/-2 Ag and Ab Screen, Plasma, HCV Ab Scrn w/Reflex to HCV PCR, Serum 09/16/2024 2:31 PM UNDERWRITING DIRECTOR - 09/16/2024 11:59 PM UNDERWRITING DIRECTOR Hospital Encounter Department of Laboratory Medicine in [address] [phone] Elen Larios APRN, C.N.P. Screening Test Laboratory Discharge Disposition: Home or Self Care 09/16/2024 2:31 PM UNDERWRITING DIRECTOR - 09/16/2024 11:59 PM UNDERWRITING DIRECTOR Hospital Encounter Department of Laboratory Medicine in [address] [phone] Elen Larios APRN, C.N.P. Screening Test Laboratory; Human Immunodeficiency Virus Screening Discharge Disposition: Home or Self Care 09/16/2024 1:30 PM UNDERWRITING DIRECTOR Comprehensive Visit Department of Family Medicine, [facility], in [address] [phone] Elen Larios APRN, C.N.P. Human Immunodeficiency Virus [...] Grandmother Madelyn Ojeda Liver disease Paternal Grandmother Madeyln Ojeda Obesity Paternal Grandmother Madelyn Ojeda Relation [...] drink = 0.6 oz pur e alcohol) [facility] Utilities Answer Date Recorded In the [...] your living situation today? I have a [facility] place to live 09/16/2024 Comments No Sex and Gender Information Value Date Recorded Sex Assigned at Female 05/13/2023 8:15 AM CDT Legal Sex Female 10:45 AM CDT Gender Identity Female 05/13/2023 8:15 AM CDT Sexual Orientation Straight 05/13/2023 8: 15 AM CDT Last Filed Vital Signs Vital Sign Reading Time Taken Comments Blood Pressure 111/78 09/16/2024 1:24 PM UNDERWRITING DIRECTOR Pulse 69 09/16/2024 1:24 PM UNDERWRITING DIRECTOR Temperature 36.9 C (98.4 F) 09/16/2024 1:24 PM UNDERWRITING DIRECTOR Respiratory Rate - - Oxygen Saturation - - Inhaled Oxygen Concentration - - Weight 81.6 kg (179 lb 14.3 oz) 09/16/2024 1:24 PM UNDERWRITING DIRECTOR Height 151.6 cm (4' 11.69) 09/16/2024 1:24 PM C Body Mass Index 35.51 09/16/2024 1:24 PM UNDERWRITING DIRECTOR Plan of Treatment Health Maintenance Due Date [...] IF INDICATED, U Routine 09/16/2024 2:46 PM UNDERWRITING DIRECTOR Screening Test Laboratory BASIC METABOLIC PANEL, S/P Routine 09/16/2024 2:38 PM UNDERWRITING DIRECTOR Screening Test Laboratory HCV AB SCRN W/REFLEX TO HCV PCR, S Routine 09/16/2024 2:38 PM UNDERWRITING DIRECTOR Screening Test Laboratory HIV-1/-2 AG AND AB SCREEN, PLASMA Routine 09/16/2024 2:38 PM UNDERWRITING DIRECTOR Human Immunodeficiency Virus Screening from Last 3 Months Results * Urinalysis with Microscopic if Indicated: Urine, Midstream (09/16/2024 2:46 PM UNDERWRITING DIRECTOR) Source Urine, Urine, Midstream 09/16/2024 2:46 PM UNDERWRITING DIRECTOR CNFL Clarity Clear Clear 09/16/2024 2:49 PM UNDERWRITING DIRECTOR CNFL Color Yellow 09/16/2024 2:49 PM UNDERWRITING DIRECTOR CNFL Comment: ----REFERENCE VALUE---- Colorless Yellow Debora Blood Negative Negative 09/16/2024 2:49 PM UNDERWRITING DIRECTOR CNFL Nitrite Negative Negative 09/16/2024 2:49 PM UNDERWRITING DIRECTOR CNFL Leukocyte Esterase Negative Negative 09/16/2024 2:49 PM UNDERWRITING DIRECTOR CNFL Protein Negative mg/dL 09/16/2024 2:49 PM UNDERWRITING DIRECTOR CNFL Comment: ----REFERENCE VALUE---- Negative Trace Glucose Negative Negative mg/dL 09/16/2024 2:49 PM UNDERWRITING DIRECTOR CNFL Ketones, QI(U) Negative Negative mg/dL 09/16/2024 2:49 PM UNDERWRITING DIRECTOR CNFL Bilirubin Negative Negative 09/16/2024 2:49 PM UNDERWRITING DIRECTOR CNFL pH 7.0 5.0 - 8.0 09/16/2024 2:49 PM UNDERWRITING DIRECTOR CNFL Specific [place] 1.020 1.001 - 1.035 09/16/2024 2:49 PM UNDERWRITING DIRECTOR CNFL Urobilinogen 0.2 0.2 - 1.0 mg/dL 09/16/2024 2:49 PM UNDERWRITING DIRECTOR CNFL Urine (Urine, Midstream) 09/16/2024 2:46 PM UNDERWRITING DIRECTOR 09/16/2024 2:46 PM UNDERWRITING DIRECTOR Elen Larios APRN, C.N.P. LAB URINE ORDERABLES Final Result [facility] [address] [place] [address], [facility] CNFL [facility] in [address] [address] * HIV-1/-2 Ag and Ab Screen, Plasma (09/16/2024 2:38 PM UNDERWRITING DIRECTOR) Pathologist [facility] HIV Ag/Ab Screen, P Negative Negative 09/17/2024 9:43 AM UNDERWRITING DIRECTOR ECLR Comment: Negative result does not rule out HIV infection. If exposure to HIV infection occurred <14 days ago, contact the laboratory to request addition of HIV-1/HIV-2 RNA detection, Plasma (HIP12). HIV-1 p24 Ag Screen, P Negative Negative 09/17/2024 9:43 AM UNDERWRITING DIRECTOR ECLR Comment: Negative result does not rule out HIV infection. If exposure to HIV infection occurred <14 days ago, contact the laboratory to request addition of HIV-1/HIV-2 RNA detection, Plasma (HIP12). HIV-1 Ab Screen, P Negative Negative 09/17/2024 9:43 AM UNDERWRITING DIRECTOR ECLR Comment: Negative result does not rule out HIV infection. If exposure to HIV infection occurred <14 days ago, contact the laboratory to request addition of HIV-1/HIV-2 RNA detection, Plasma (HIP12). HIV-2 Ab Screen, P Negative Negative 09/17/2024 9:43 AM UNDERWRITING DIRECTOR ECLR Comment: Negative result does not rule out HIV infection. If exposure to HIV infection occurred <14 days ago, contact the laboratory to request addition of HIV-1/HIV-2 RNA detection, Plasma (HIP12). Blood (Blood, Venous) 09/16/2024 2:38 PM UNDERWRITING DIRECTOR 09/16/2024 8:33 PM UNDERWRITING DIRECTOR Elen Larios APRN C.N.P. LAB MICROBIOLOGY - BL OOD ORDERABLES Final Result [facility] [address] [place] [address], [facility] ECLR [facility] in [address] [address] * HCV Ab Scrn w/Reflex to HCV PCR, Serum (09/16/2024 2:38 PM UNDERWRITING DIRECTOR) HCV Ab Screen, S Negative Negative 09/16/2024 9:23 PM UNDERWRITING DIRECTOR ECLR Blood (Blood, Venous) 09/16/2024 2:38 PM UNDERWRITING DIRECTOR 09/16/2024 8:33 PM UNDERWRITING DIRECTOR Narrative [facility] - 09/16/2024 9:23 PM UNDERWRITING DIRECTOR Specimen Information: Specimen ID: [id number] Specimen Type: Blood Specimen Collection Start Date: 09/16/2024 2:38 PM Specimen Received Date: 09/16/2024 8:33 PM Specimen ID: [id number] Specimen Type: Blood Specimen Collection Start Date: 09/16/2024 2:38 PM Specimen Received Date: 09/16/2024 8:33 PM Jairo Sarmiento APRNNSom LAB MICROBIOLOGY - BL OOD ORDERABLES Final Result [facility] [address] [place] [address], [facility] ECLR [facility] [place] [address] * Basic Metabolic Panel (09/16/2024 2:38 PM UNDERWRITING DIRECTOR) Potassium, P 4.2 3.6 - 5.2 mmol/L 09/16/2024 2:58 PM UNDERWRITING DIRECTOR CNFL Sodium, P 139 135 - 145 mmol/L 09/16/2024 2:58 PM UNDERWRITING DIRECTOR CNFL Chloride, P 103 98 - 107 mmol/L 09/16/2024 2:58 PM UNDERWRITING DIRECTOR CNFL Bicarbonate, P 24 22 - 29 mmol/L 09/16/2024 2:58 PM UNDERWRITING DIRECTOR CNFL Anion Gap, P 12 7 - 15 09/16/2024 2:58 PM UNDERWRITING DIRECTOR CNFL BUN (Blood Urea Nitrogen), P 12 6 - 21 mg/dL 09/16/2024 2:58 PM UNDERWRITING DIRECTOR CNFL Creatinine 0.61 0.59 - 1.04 mg/dL 09/16/2024 2:58 PM UNDERWRITING DIRECTOR CNFL Estimated GFR (eGFR) >90 >=60 mL/min/BSA 09/16/2024 2:58 PM UNDERWRITING DIRECTOR CNFL Comment: Estimated GFR calculated using the 2020 CKD_EPI creatinine equation. Calcium, Total, P 8.8 8.6 - 10.0 mg/dL 09/16/2024 2:58 PM UNDERWRITING DIRECTOR CNFL Glucose, P 101 70 - 140 mg/dL 09/16/2024 2:58 PM UNDERWRITING DIRECTOR CNFL Blood (Blood, Venous) 09/16/2024 2:38 PM UNDERWRITING DIRECTOR 09/16/2024 2:40 PM UNDERWRITING DIRECTOR Elen Larios APRN C.N.P. LAB BLOOD ADD-ON Ashanti l Result [facility] [id number] [address], [facility] CNFL [facility] in [place] [id number] [place] [phone] from Last 3 Months Insurance [employer] [facility] Care Teams Truck Switcher Relationship Specialty Start Date End Date Niki Larkin M.D. [id number] [phone] PCP - General Family Medicine 09/08/24
--- OUTSIDE RECORDS SUMMARY | 2024-09-24 20:27 | XMS_ITS | Clinical Summary ---
Author Organization [facility] Address [place], [place] [address] Care Team Providers Care Manufacturing Lead Name Role Phone Marya Scott MD Primary [...] 800 million cell tab Take by mouth. Dinos Rule Formulated Probiotics 80 Billion CFU 0 11/13/19 [...] AM Assessment & Plan (06/29/2018 9:27 AM BIOMETRIC TECHNICIAN): Wishes Tubal if has C section consent [...] Flulaval,Fluzone Fluarix)(Flu Clinic Only) 07/05/2017,05/10/2014 COVID-19 vaccine (ElasticDot NTech 30mcg/0.3mL) 12YO+ RUMA-SUCROSE PF, MDV 10/09/2021,09/17/2021 HPV 9 (Gardasil 9) 08/27/2016 Influenza, IIV3 (Age >=3 years) 06/03/2013,08/04,06/28/2010 Influenza, IIV4 06/20/2020,11/02/2015,05/10/2014 Tdap 05/04/2018,12/28/2012 Tuberculin (PPD) 12/12/2016 Family History Medical History Relation Name Comments Good Health Brother Good Health Daughter Diabetes Father Aneurysm Mother brain 2 Heart Disease Mother PA at 41 Hypertension Mother Diabetes Paternal Aunt [...] on file Legal Sex Female 8:00 AM BIOMETRIC TECHNICIAN Gender Identity Female 07/09/2020 11:08 AM BIOMETRIC TECHNICIAN Sexual Orientation Not on file Occupation Industry [...] Procedure Name Priority Date/Time Associated Diagnosis Comments REHAB ASSISTANT THIN PREP PAP SCREEN IMAGED Routine 06/20/2020 8:20 AM BIOMETRIC TECHNICIAN Pap smear for cervical cancer screening ANTI HIV 1/2 Routine 12/18/2017 12:52 PM CDT Encounter for supervision of other normal , first trimester from Last 3 Months or Most Recently Relevant to Health Maintenance Results * REHAB ASSISTANT THIN PREP PAP SCREEN IMAGED (06/20/2020 8:20 AM BIOMETRIC TECHNICIAN) Case Report Gynecologic Cytology Report Case: [id number] Authorizing Provider: Marya Scott Collected: 06/20/2020 0820 MD Lizbeth Ordering Location: [facility] Received: 06/20/2020 0915 Clinic First Screen: Caleb Rosas Specimen: REHAB ASSISTANT ThinPrep Vial Screening, Cervical 06/28/2020 1:33 PM BIOMETRIC TECHNICIAN [facility]-C ENTRAL LABORATORY INTERPRETATION/ RESULT NEGATIVE FOR INTRAEPITHELIAL LESION OR MALIGNANCY (NIL) (none) 06/28/2020 1:33 PM BIOMETRIC TECHNICIAN [facility] LABORAT[facility] IMEN ADEQUACY Satisfactory for evaluation Endocervical component present 06/28/2020 1:33 PM BIOMETRIC TECHNICIAN [facility] HPV REQUEST HPV if ASCUS 06/28/2020 1:33 PM BIOMETRIC TECHNICIAN [facility] Date of LMP 06/15/2020 06/28/2020 1:33 PM BIOMETRIC TECHNICIAN [facility] Last Pap Date 12/23/17 06/28/2020 1:33 PM BIOMETRIC TECHNICIAN [facility] Last Pap Result NIL 0 1:33 PM BIOMETRIC TECHNICIAN [facility] Abnormal Pap or [place] Bx in last 5 years No 06/28/2020 1:33 PM BIOMETRIC TECHNICIAN [facility] Menstrual Status Regular Periods 06/28/2020 1:33 PM BIOMETRIC TECHNICIAN [facility] EN[facility] [place] Bx Done Today No 06/28/2020 1:33 PM BIOMETRIC TECHNICIAN [facility] Additional Information None given 06/28/2020 1:33 PM BIOMETRIC TECHNICIAN [facility] Comment: Cytology is screened at [facility] - [address], [place] [address] and [facility] - [address] [place] [address] and [facility] - [address] [place] [address] Interpreted at [facility] - [address], [place] [address] Automated Review Successful 06/28/2020 1:33 PM BIOMETRIC TECHNICIAN [facility] Comment:Specimen processed s uccessfully by automated cyber security manager device, ThinPrep Imaging System, [employer] Note The pap test is a screening technique, not a diagnostic procedure. It is used primarily to screen for squamous cancers and precursor lesions. Published studies have shown that it is subject to both false negative and false positive results. The pap test should not be used as the sole means to diagnose or exclude pre-malignant and malignant lesions. 06/28/2020 1:33 PM BIOMETRIC TECHNICIAN [facility] [employer] [facility] ENTRAL LABORATORY Other (Cervical) Non-Blood / Unknown 06/20/2020 8:20 AM BIOMETRIC TECHNICIAN 06/20/2020 9:15 AM BIOMETRIC TECHNICIAN us Marya Scott MD PATHOLOGY/CYTOLOGY Final Result Performing Organization Address City/[facility]/ZIP Co de Phone Number [facility] [address] [place] [address], * ANTI HIV 1/2 (12/18/2017 12:52 PM CDT) HIV-1/HIV-2 ANTIBODY Non-Reacti ve Non-Reacti ve 12/18/2017 5:20 PM CDT [facility] TRAL LABORATORY Comment:HIV-1 p24 and HIV-1/ HIV-2 Ab not detected. Blood BLOOD SPECIMEN / Unknown Venipuncture / Unknown 12/18/2017 12:52 PM CDT 12/18/2017 12:52 PM CDT us Roslyn Wiggins PVC MONITOR SEND OUTS F inal Result Performing Organization Address City/[facility]/ZIP Co de Phone Number [facility] [address] [place] [address], from Last 3 Months or Most Recently Relevant to Health Maintenance Insurance [employer] [id number] Advance Directives * Full Code (Latest Code Status on File) Date Activated Date Inactivated Comments 12/26/2020 12:16 PM 12/26/2020 5:02 PM Question Answer Comments Code Status Discussion: Discussed * Full Code Date Activated Date Inactivated Comments 07/25/2020 6:35 AM 07/25/2020 4:31 PM Question Answer Comments Code Status Discussion: Not Discussed Care Teams Manufacturing Lead Relationship Specialty Start Date End Date Marya Scott MD [address] [facility] [address] PCP - General Family Practice 06/18/12
--- OUTSIDE RECORDS SUMMARY | 2024-09-24 20:27 | XMS_ITS | Encounter Summary ---
Author Organization [facility] Address [address] [place] [address] Care Team Providers Care Prefitter Doors Name Role Phone Niki Larkin M.D. Primary Care Provider +1- [phone] Encounter Details Date Type Department Care Team (Latest Contact Info) Description 09/16/2024 2:31 PM GREY GOODS EXAMINER - 09/16/2024 11:59 PM [facility] Hospital Encounter Department of Laboratory Medicine in [address] [phone] Elen Larios, AIR BATTLE MANAGER, C.N.P. [address] [place] [phone] Screening Test Laboratory Discharge Disposition: Home or Self Care Social History Tobacco Use Types Packs/Day Years Used Date Smoking Tobacco: Never Smokeless Tobacco: Never Comments:Never been a smoker . Alcohol Use Standard Drinks/Week Comments Never 0 (1 standard drink = 0.6 oz pur e alcohol) [facility] Utilities Answer Date Recorded In the past 12 months has [employer] electric, gas, oil, or water company threatened [...] your living situation today? I have a [facility] place to live 09/16/2024 Comments No [...] IF INDICATED, U Routine 09/16/2024 2:46 PM GREY GOODS EXAMINER Screening Test Laboratory documented in this encounter Results * Urinalysis with Microscopic if Indicated: Urine, Midstream (09/16/2024 2:46 PM GREY GOODS EXAMINER) Source Urine, Urine, Midstream 09/16/2024 2:46 PM GREY GOODS EXAMINER CNFL Clarity Clear Clear 09/16/2024 2:49 PM GREY GOODS EXAMINER CNFL Color Yellow 09/16/2024 2:49 PM GREY GOODS EXAMINER CNFL Comment: ----REFERENCE VALUE---- Colorless Yellow Debora Blood Negative Negative 09/16/2024 2:49 PM GREY GOODS EXAMINER CNFL Nitrite Negative Negative 09/16/2024 2:49 PM GREY GOODS EXAMINER CNFL Leukocyte Esterase Negative Negative 09/16/2024 2:49 PM GREY GOODS EXAMINER CNFL Protein Negative mg/dL 09/16/2024 2:49 PM GREY GOODS EXAMINER CNFL Comment: ----REFERENCE VALUE---- Negative Trace Glucose Negative Negative mg/dL 09/16/2024 2:49 PM GREY GOODS EXAMINER CNFL Ketones, QI(U) Negative Negative mg/dL 09/16/2024 2:49 PM GREY GOODS EXAMINER CNFL Bilirubin Negative Negative 09/16/2024 2:49 PM GREY GOODS EXAMINER CNFL pH 7.0 5.0 - 8.0 09/16/2024 2:49 PM GREY GOODS EXAMINER CNFL Specific [place] 1.020 1.001 - 1.035 09/16/2024 2:49 PM GREY GOODS EXAMINER CNFL Urobilinogen 0.2 0.2 - 1.0 mg/dL 09/16/2024 2:49 PM GREY GOODS EXAMINER CNFL Urine (Urine, Midstream) 09/16/2024 2:46 PM GREY GOODS EXAMINER 09/16/2024 2:46 PM GREY GOODS EXAMINER us Elen Larios APRN, C.N.P. LAB URINE ORDERABLES Final Result [facility] [address] [place] [address], [facility] in [address] [address] documented in this encounter Visit Diagnoses Diagnosis Screening Test Laboratory documented in this encounter Care Teams Prefitter Doors Relationship Specialty Start Date End Date Niki Larkin M.D. [address] [place] [phone] PCP - General Family Medicine 09/08/24 documented as of this encounter
--- OUTSIDE RECORDS SUMMARY | 2024-09-24 20:27 | XMS_ITS | Encounter Summary ---
Author Organization [facility] Address [address] [place] [address] Care Team Providers Care Physician Credentialing Specialist Name Role Phone Niki Larkin M.D. Primary Care Provider +1- [phone] Encounter Details Date Type Department Care Team (Late st Contact Info) Description 09/20/2024 Results Follow-Up Department of Family Medicine, [facility], in [address] [phone] Elen Larios, WEEDER THINNER, C.N.P. [address] [place] [phone] Basic Metabolic Panel, HIV-1/-2 Ag and Ab Screen, Plasma, HCV Ab Scrn w/Reflex to HCV PCR, Serum Social History Tobacco Use Types Packs/Day Years Used Date Smoking Tobacco: Never Smokeless Tobacco: Never Comments:Never been a smoker . Alcohol Use Standard Drinks/Week Comments Never 0 (1 standard drink = 0.6 oz pur e alcohol) [facility] Utilities Answer Date Recorded In the past 12 months has [employer] electric, gas, oil, or water company threatened [...] your living situation today? I have a [facility] place to live 09/16/2024 Comments No [...] on filedocumented in this encounter Care Teams Physician Credentialing Specialist Relationship Specialty Start Date End Date Niki Larkin M.D. NPLevi: [id number] [phone] PCP - General Family Medicine 09/08/24 documented as of this encounter
--- OUTSIDE RECORDS SUMMARY | 2024-09-24 20:27 | XMS_ITS | Encounter Summary ---
Author Organization [facility] Address [address] [place] [address] Care Team Providers Care Welt Insole Channeler Name Role Phone Niki Larkin M.D. Primary Care Provider [phone]- [phone] Reason for Visit * Reason Comments Annual [...] Expiration Date Visits Re quested Visits Authorized [id number] Closed 09/08/2024 12/09/2025 1 1 Encounter Details Date Type Department Care Team (Latest Contact Info) Description 09/16/2024 1:30 PM JUNIOR NET DEVELOPER Comprehensive Visit Department of Family Medicine, [facility], in [address] [phone] Elen Larios APRN, C.N.P. [address] [place] [phone] Human Immunodeficiency Virus Screening; Screening Test Laboratory Discharge Disposition: Home or Self Care Social History Tobacco Use Types Packs/Day Years Used Date Smoking Tobacco: Never Smokeless Tobacco: Never Comments:Never been a smoker . Alcohol Use Standard Drinks/Week Comments Never 0 (1 standard drink = 0.6 oz pur e alcohol) [facility] Utilities Answer Date Recorded In the past 12 months has [facility] [employer], gas, oil, or water [employer] threatened to shut off services in your [...] your living situation today? I have a [facility] place to live 09/16/2024 Comments No [...] Comments Blood Pressure 111/78 09/16/2024 1:24 PM JUNIOR NET DEVELOPER Pulse 69 09/16/2024 1:24 PM JUNIOR NET DEVELOPER Temperature 36.9 C (98.4 F) 09/16/2024 1:24 PM JUNIOR NET DEVELOPER Respiratory Rate - - Oxygen Saturation - - Inhaled Oxygen Concentration - - Weight 81.6 kg (179 lb 14.3 oz) 09/16/2024 1:24 PM JUNIOR NET DEVELOPER Height 151.6 cm (4' 11.69) 09/16/2024 1:24 PM C Body Mass Index 35.51 09/16/2024 1:24 PM JUNIOR NET DEVELOPER documented in this encounter Plan of Treatment Not on file documented as of this encounter Results * Urinalysis with Microscopic if Indicated: Urine, Midstream (09/16/2024 2:46 PM JUNIOR NET DEVELOPER) Source Urine, Urine, Midstream 09/16/2024 2:46 PM JUNIOR NET DEVELOPER CNFL Clarity Clear Clear 09/16/2024 2:49 PM JUNIOR NET DEVELOPER CNFL Color Yellow 09/16/2024 2:49 PM JUNIOR NET DEVELOPER CNFL Comment: ----REFERENCE VALUE---- Colorless Yellow Debora Blood Negative Negative 09/16/2024 2:49 PM JUNIOR NET DEVELOPER CNFL Nitrite Negative Negative 09/16/2024 2:49 PM JUNIOR NET DEVELOPER CNFL Leukocyte Esterase Negative Negative 09/16/2024 2:49 PM JUNIOR NET DEVELOPER CNFL Protein Negative mg/dL 09/16/2024 2:49 PM JUNIOR NET DEVELOPER CNFL Comment: ----REFERENCE VALUE---- Negative Trace Glucose Negative Negative mg/dL 09/16/2024 2:49 PM JUNIOR NET DEVELOPER CNFL Ketones, QI(U) Negative Negative mg/dL 09/16/2024 2:49 PM JUNIOR NET DEVELOPER CNFL Bilirubin Negative Negative 09/16/2024 2:49 PM JUNIOR NET DEVELOPER CNFL pH 7.0 5.0 - 8.0 09/16/2024 2:49 PM JUNIOR NET DEVELOPER CNFL Specific [place] 1.020 1.001 - 1.035 09/16/2024 2:49 PM JUNIOR NET DEVELOPER CNFL Urobilinogen 0.2 0.2 - 1.0 mg/dL 09/16/2024 2:49 PM JUNIOR NET DEVELOPER CNFL Urine (Urine, Midstream) 09/16/2024 2:46 PM JUNIOR NET DEVELOPER 09/16/2024 2:46 PM JUNIOR NET DEVELOPER us Elen Larios APRN, C.N.P. LAB URINE ORDERABLES Final Result Performing Organization Address City/[facility] Co de Phone Number [facility] [address] [place] [phone], [facility] CNFL [facility] in [address] [address] * HCV Ab Scrn w/Reflex to HCV PCR, Serum (09/16/2024 2:38 PM JUNIOR NET DEVELOPER) HCV Ab Screen, S Negative Negative 09/16/2024 9:23 PM JUNIOR NET DEVELOPER ECLR Blood (Blood, Venous) 09/16/2024 2:38 PM JUNIOR NET DEVELOPER 09/16/2024 8:33 PM JUNIOR NET DEVELOPER Narrative [facility] - 09/16/2024 9:23 PM JUNIOR NET DEVELOPER Specimen Information: Specimen ID: [id number] Specimen Type: Blood Specimen Collection Start Date: 09/16/2024 2:38 PM Specimen Received Date: 09/16/2024 8:33 PM Specimen ID: [id number] Specimen Type: Blood Specimen Collection Start Date: 09/16/2024 2:38 PM Specimen Received Date: 09/16/2024 8:33 PM us Elen Larios APRN, C.N.P. LAB MICROBIOLOGY - BL OOD ORDERABLES Final Result [facility] [address] [place] [id number], [facility] ECLR [facility] in [address] [address] * HIV-1/-2 Ag and Ab Screen, Plasma (09/16/2024 2:38 PM JUNIOR NET DEVELOPER) HIV Ag/Ab Screen, P Negative Negative 09/17/2024 9:43 AM JUNIOR NET DEVELOPER ECLR Comment: Negative result does not rule out HIV infection. If exposure to HIV infection occurred <14 days ago, contact the laboratory to request addition of HIV-1/HIV-2 RNA detection, Plasma (HIP12). HIV-1 p24 Ag Screen, P Negative Negative 09/17/2024 9:43 AM JUNIOR NET DEVELOPER ECLR Comment: Negative result does not rule out HIV infection. If exposure to HIV infection occurred <14 days ago, contact the laboratory to request addition of HIV-1/HIV-2 RNA detection, Plasma (HIP12). HIV-1 Ab Screen, P Negative Negative 09/17/2024 9:43 AM JUNIOR NET DEVELOPER ECLR Comment: Negative result does not rule out HIV infection. If exposure to HIV infection occurred <14 days ago, contact the laboratory to request addition of HIV-1/HIV-2 RNA detection, Plasma (HIP12). HIV-2 Ab Screen, P Negative Negative 09/17/2024 9:43 AM JUNIOR NET DEVELOPER ECLR Comment: Negative result does not rule out HIV infection. If exposure to HIV infection occurred <14 days ago, contact the laboratory to request addition of HIV-1/HIV-2 RNA detection, Plasma (HIP12). Blood (Blood, Venous) 09/16/2024 2:38 PM JUNIOR NET DEVELOPER 09/16/2024 8:33 PM JUNIOR NET DEVELOPER Elen Larios APRN C.N.P. LAB MICROBIOLOGY - BL OOD ORDERABLES Final Result [facility] [address] [place] [address], [facility] ECLR [facility] in [address] [address] * Basic Metabolic Panel (09/16/2024 2:38 PM JUNIOR NET DEVELOPER) Potassium, P 4.2 3.6 - 5.2 mmol/L 09/16/2024 2:58 PM JUNIOR NET DEVELOPER CNFL Sodium, P 139 135 - 145 mmol/L 09/16/2024 2:58 PM JUNIOR NET DEVELOPER CNFL Chloride, P 103 98 - 107 mmol/L 09/16/2024 2:58 PM JUNIOR NET DEVELOPER CNFL Bicarbonate, P 24 22 - 29 mmol/L 09/16/2024 2:58 PM JUNIOR NET DEVELOPER CNFL Anion Gap, P 12 7 - 15 09/16/2024 2:58 PM JUNIOR NET DEVELOPER CNFL BUN (Blood Urea Nitrogen), P 12 6 - 21 mg/dL 09/16/2024 2:58 PM JUNIOR NET DEVELOPER CNFL Creatinine 0.61 0.59 - 1.04 mg/dL 09/16/2024 2:58 PM JUNIOR NET DEVELOPER CNFL Estimated GFR (eGFR) >90 >=60 mL/min/BSA 09/16/2024 2:58 PM JUNIOR NET DEVELOPER CNFL Comment: Estimated GFR calculated using the 2020 CKD_EPI creatinine equation. Calcium, Total, P 8.8 8.6 - 10.0 mg/dL 09/16/2024 2:58 PM JUNIOR NET DEVELOPER CNFL Glucose, P 101 70 - 140 mg/dL 09/16/2024 2:58 PM JUNIOR NET DEVELOPER CNFL Blood (Blood, Venous) 09/16/2024 2:38 PM JUNIOR NET DEVELOPER 09/16/2024 2:40 PM JUNIOR NET DEVELOPER Elen Larios APRN, C.N.P. LAB BLOOD ADD-ON Ashanti l Result [facility] [address] [place] [address], [facility] CNFL [facility] in [address] [address] documented in this encounter Visit Diagnoses Diagnosis Human Immunodeficiency Virus Screening Screening Test Laboratory Screening Test Laboratory Human Immunodeficiency Virus Screening documented in this encounter Care Teams Welt Insole Channeler Relationship Specialty Start Date End Date Niki Larkin M.D. [address] [place] [phone] PCP - General Family Medicine 09/08/24 documented as of this encounter
--- OUTSIDE RECORDS SUMMARY | 2024-09-24 20:28 | XMS_ITS | Encounter Summary ---
Author Organization [facility] Address [address] [place] [address] Care Team Providers Care Land Development Project Manager Name Role Phone Niki Larkin M.D. Primary Care Provider +1- [phone] Encounter Details Date Type Department Care Team (Latest Contact Info) Description 09/16/2024 2:31 PM B2B MANAGED SERVICE SALES EXEC - 09/16/2024 11:59 PM [facility] Hospital Encounter Department of Laboratory Medicine in [address] [phone] Elen Larios, ASSURANCE SENIOR MANAGER INSURANCE, C.N.P. [address] [place] [phone] Screening Test Laboratory; Human Immunodeficiency Virus Screening Discharge Disposition: Home or Self Care Social History Tobacco Use Types Packs/Day Years Used Date Smoking Tobacco: Never Smokeless Tobacco: Never Comments:Never been a smoker . Alcohol Use Standard Drinks/Week Comments Never 0 (1 standard drink = 0.6 oz pur e alcohol) [facility] Utilities Answer Date Recorded In the past 12 months has [employer] electric, gas, oil, or water company threatened [...] your living situation today? [facility] 09/16/2024 Comments No [...] AB SCREEN, PLASMA Routine 09/16/2024 2:38 PM B2B MANAGED SERVICE SALES EXEC Human Immunodeficiency Virus Screening HCV AB SCRN W/REFLEX TO HCV PCR, S Routine 09/16/2024 2:38 PM B2B MANAGED SERVICE SALES EXEC Screening Test Laboratory BASIC METABOLIC PANEL, S/P Routine 09/16/2024 2:38 PM B2B MANAGED SERVICE SALES EXEC Screening Test Laboratory documented in this encounter Results * HCV Ab Scrn w/Reflex to HCV PCR, Serum (09/16/2024 2:38 PM B2B MANAGED SERVICE SALES EXEC) HCV Ab Screen, S Negative Negative 09/16/2024 9:23 PM B2B MANAGED SERVICE SALES EXEC ECLR Blood (Blood, Venous) 09/16/2024 2:38 PM B2B MANAGED SERVICE SALES EXEC 09/16/2024 8:33 PM B2B MANAGED SERVICE SALES EXEC Narrative [facility] - 09/16/2024 9:23 PM B2B MANAGED SERVICE SALES EXEC Specimen Information: Specimen ID: [id number] Specimen Type: Blood Specimen Collection Start Date: 09/16/2024 2:38 PM Specimen Received Date: 09/16/2024 8:33 PM Specimen ID: [id number] Specimen Type: Blood Specimen Collection Start Date: 09/16/2024 2:38 PM Specimen Received Date: 09/16/2024 8:33 PM us Elen Larios APRN, C.N.P. LAB MICROBIOLOGY - BL OOD ORDERABLES Final Result [facility] [address] [place] [address], [facility] ECLR [facility] in [address] [address] * HIV-1/-2 Ag and Ab Screen, Plasma (09/16/2024 2:38 PM B2B MANAGED SERVICE SALES EXEC) Pathologist [facility] HIV Ag/Ab Screen, P Negative Negative 09/17/2024 9:43 AM B2B MANAGED SERVICE SALES EXEC ECLR Comment: Negative result does not rule out HIV infection. If exposure to HIV infection occurred <14 days ago, contact the laboratory to request addition of HIV-1/HIV-2 RNA detection, Plasma (HIP12). HIV-1 p24 Ag Screen, P Negative Negative 09/17/2024 9:43 AM B2B MANAGED SERVICE SALES EXEC ECLR Comment: Negative result does not rule out HIV infection. If exposure to HIV infection occurred <14 days ago, contact the laboratory to request addition of HIV-1/HIV-2 RNA detection, Plasma (HIP12). HIV-1 Ab Screen, P Negative Negative 09/17/2024 9:43 AM B2B MANAGED SERVICE SALES EXEC ECLR Comment: Negative result does not rule out HIV infection. If exposure to HIV infection occurred <14 days ago, contact the laboratory to request addition of HIV-1/HIV-2 RNA detection, Plasma (HIP12). HIV-2 Ab Screen, P Negative Negative 09/17/2024 9:43 AM B2B MANAGED SERVICE SALES EXEC ECLR Comment: Negative result does not rule out HIV infection. If exposure to HIV infection occurred <14 days ago, contact the laboratory to request addition of HIV-1/HIV-2 RNA detection, Plasma (HIP12). Blood (Blood, Venous) 09/16/2024 2:38 PM B2B MANAGED SERVICE SALES EXEC 09/16/2024 8:33 PM B2B MANAGED SERVICE SALES EXEC us Elen Larios APRN, C.N.P. LAB MICROBIOLOGY - BL OOD ORDERABLES Final Result [facility] [address] [place] [address], [facility] ECLR [facility] in [address] [address] * Basic Metabolic Panel (09/16/2024 2:38 PM B2B MANAGED SERVICE SALES EXEC) [facility] Potassium, P 4.2 3.6 - 5.2 mmol/L 09/16/2024 2:58 PM B2B MANAGED SERVICE SALES EXEC CNFL Sodium, P 139 135 - 145 mmol/L 09/16/2024 2:58 PM B2B MANAGED SERVICE SALES EXEC CNFL Chloride, P 103 98 - 107 mmol/L 09/16/2024 2:58 PM B2B MANAGED SERVICE SALES EXEC CNFL Bicarbonate, P 24 22 - 29 mmol/L 09/16/2024 2:58 PM B2B MANAGED SERVICE SALES EXEC CNFL Anion Gap, P 12 7 - 15 09/16/2024 2:58 PM B2B MANAGED SERVICE SALES EXEC CNFL BUN (Blood Urea Nitrogen), P 12 6 - 21 mg/dL 09/16/2024 2:58 PM B2B MANAGED SERVICE SALES EXEC CNFL Creatinine 0.61 0.59 - 1.04 mg/dL 09/16/2024 2:58 PM B2B MANAGED SERVICE SALES EXEC CNFL Estimated GFR (eGFR) >90 >=60 mL/min/BSA 09/16/2024 2:58 PM B2B MANAGED SERVICE SALES EXEC CNFL Comment: Estimated GFR calculated using the 2020 CKD_EPI creatinine equation. Calcium, Total, P 8.8 8.6 - 10.0 mg/dL 09/16/2024 2:58 PM B2B MANAGED SERVICE SALES EXEC CNFL Glucose, P 101 70 - 140 mg/dL 09/16/2024 2:58 PM B2B MANAGED SERVICE SALES EXEC CNFL Blood (Blood, Venous) 09/16/2024 2:38 PM B2B MANAGED SERVICE SALES EXEC 09/16/2024 2:40 PM B2B MANAGED SERVICE SALES EXEC us Elen Larios APRN, C.N.P. LAB BLOOD ADD-ON Ashanti l Result [facility] [address] [place] [address], [facility] CNFL [facility] in [address] [address] documented in this encounter Visit Diagnoses Diagnosis Screening Test Laboratory Human Immunodeficiency Virus Screening documented in this encounter Care Teams Land Development Project Manager Relationship Specialty Start Date End Date Niki Larkin M.D. [address] [place] [phone] PCP - General Family Medicine 09/08/24 documented as of this encounter
[2024-09-24] MEDS: 0.9 % SODIUM CHLORIDE 500 ML 500 ML IV (20:34)
[2024-09-24 20:44] LABS: PCR FLU A Negative PCR FLU A (Negative); PCR FLU B Negative PCR FLU B (Negative); PCR RSV Negative PCR RSV (Negative); SARS PCR* Negative SARS-CoV-2 (Negative)
[2024-09-24] MEDS: KETOROLAC 15 MG/ML inj IVP (20:59)
[2024-09-24 21:25] LABS: Basophils Absolute Auto 0.03 K/uL (0.00-0.30); Basophils Percent Auto 0.5 % (0.0-3.0); Eosinophils Absolute Auto 0.15 K/uL (0.00-0.50); Eosinophils Percent Auto 2.4 % (0.0-7.0); Hematocrit 37.1 % (33.0-51.0); Hemoglobin* 11.5 gm/dL (12.0-16.0); Immature Granulocytes Abs Auto 0.04 K/uL (0.00-0.30); Immature Granulocytes Pct Auto 0.6 %; Lymphocytes Absolute Auto 2.03 K/uL (0.90-2.90); Lymphocytes Percent Auto 32.3 % (20-44); Mean Corpuscular HGB Conc 31 gm/dL (32-36); Mean Corpuscular Hemoglobin 25 pg (26-34); Mean Corpuscular Volume 79 fL (80-100); Monocytes Percent Auto 7.9 % (0.0-11.0); Neutrophils Absolute Auto 3.54 K/uL (1.7-7.0); Neutrophils Percent Auto 56.3 % (42.0-72.0); Platelet Count* 332 K/uL (140-440); RDW Coefficient of Variation % 17.4 % (11.5-15.5); Red Blood Count 4.68 m/uL (4.00-5.20); White Blood Count* 6.29 K/uL (4.50-11.00)
[2024-09-24 21:33] LABS: Slide Review Reflex No
[2024-09-24 21:38] LABS: Albumin* 4.7 g/dL (3.3-5.0); Chloride* 106 mmol/L (96-114)
[2024-09-24 21:39] LABS: Potassium* 3.6 mmol/L (3.6-5.1); Sodium* 139 mmol/L (135-149)
[2024-09-24 21:41] LABS: Alanine Aminotransferase* 15 U/L (4-35); Alkaline Phosphatase* 55 U/L (40-150); Anion Gap 9 mEq/L (7-15); Aspartate Amino Transferase* 18 U/L (12-35); Bilirubin Total* 0.3 mg/dL (0.1-1.5); Blood Urea Nitrogen* 12 mg/dL (5-24); Carbon Dioxide* 24 mmol/L (20-32); Creatinine* 0.6 mg/dL (0.5-1.5); Estimated Glomerular Filt Rate 122 ml/min; Total Protein* 7.7 g/dL (6.0-8.3)
[2024-09-24 21:42] LABS: Calcium* 9.4 mg/dL (8.4-10.6); Glucose* 124 mg/dL (60-115); Magnesium* 2.3 mg/dL (1.5-2.6)
[2024-09-24 21:43] LABS: HCG Qualitative Serum* Negative (Negative)
[2024-09-24 21:55] VITALS: BP 118/74; PULSE 71; RESP 16; O2SAT 99
== END 2024-09-24 22:33 | disposition home or self-care (01) ==
PROVIDERS: Emergency Provider Family Medicine; PCP Family Medicine
DX: I49.3 Ventricular premature depolarization (principal); B34.9 Viral infection, unspecified
CPT/HCPCS: 36415; 71045; 80053; 81025; 83735; 84484; 84703; 85025; 87631; 93005; 94761; 96374; 99284; J1885; J7030

== ENCOUNTER 2024-10-19 10:58 | Outpatient (CLI) | payer OTHER, SELFPAY | END 2024-10-19 10:59 | disposition home or self-care (01) | LOC: AMB 10-21 08:37 | PROVIDERS: Visit Provider Family Medicine | DX: R07.89 Other chest pain (principal) | CPT/HCPCS: A0425; A0427 ==